=== PATIENT | female | born 1950 | race Caucasian/White ===

== ENCOUNTER 2017-10-31 15:38 | Inpatient (IN) ==
--- NOTE | 2017-10-31 15:58 | Emergency Department Note ---
Disposition Clinical Impression: Suicidal ideation Depression Qualifiers: Depression Type: unspecified Qualified Code(s): F32.9 - Major depressive disorder, single episode, unspecified Disposition: Admitted As Inpatient Condition: Good Referrals: González Sheriff DO [Primary Care Provider] - Forms: ED Satisfaction Letter Time of Disposition: 21:27 Psych HPI - General Chief Complaint: ED Psychiatric Symptoms Stated Complaint: SI,Depression, psychotic break Time Seen by Provider: 10/31/17 15:48 Source: patient Mode of arrival: ambulatory Limitations: no limitations Nursing Notes Reviewed: Yes Vital Signs Reviewed: Yes - History of Present Illness HPI Narrative: Patient presents emergency room from her primary care provider's office. Patient seen her today and they are concerned because she was describing suicidal ideation along with the plan. She is having a psychotic break according to them. Denies any other symptoms including chest pain shortness of breath headache vision changes nausea vomiting or diarrhea. Denies any fevers or chills. Patient simply here at the request. Pt complaint: suicidal ideation, feels depressed Onset (ago): day(s) Duration: constant History of similar episodes: Yes Improves with: none Worsens with: other Context: significant life stressor Alleged intoxication: No Associated Psychiatric Symptoms: depression, suicidal ideation Associated symptoms: Reports: denies other symptoms Traumatic symptoms: denies traumatic injury Treatments prior to arrival: none Self harm or harm to others: admits thoughts of self harm, has plan - Related Data Home Medications Medication Instructions Recorded Confirmed Ergocalciferol (VITAMIN D2) 50,000 unit PO QWEEK 10/31/17 10/31/17 [Drisdol (50,000 Unit)] Gabapentin [Neurontin] 400 mg PO TID 10/31/17 10/31/17 Levothyroxine Sodium [Synthroid] 137 mcg PO DAILY 10/31/17 10/31/17 Metoprolol [Lopressor] 25 mg PO BID 10/31/17 10/31/17 OLANZapine [Zyprexa] 5 mg PO DAILY 10/31/17 10/31/17 Omeprazole [PriLOSEC] 40 mg PO DAILY 10/31/17 10/31/17 Quetiapine Fumarate [SEROquel] 100 mg PO DAILY 10/31/17 10/31/17 Ropinirole HCl [Requip] 4 mg PO DAILY 10/31/17 10/31/17 Trazodone HCl 100 mg PO HS 10/31/17 10/31/17 clonazePAM [Klonopin] 0.5 mg PO DAILY 10/31/17 10/31/17 hydrOXYzine HCl [Hydroxyzine HCl] 50 mg PO DAILY PRN 10/31/17 10/31/17 lamoTRIgine [Lamictal] 150 mg PO DAILY 10/31/17 10/31/17 Allergies Allergy/AdvReac Type Severity Reaction Status Date / Time codeine Allergy Rash Verified 10/31/17 16:03 All systems ED: reviewed and negative except as stated. Review of Systems: As Per HPI Constitutional: Denies: fever, chills, weakness Cardiovascular: Denies: chest pain, palpitations, dyspnea on exertion Respiratory: Denies: cough Gastrointestinal: Denies: nausea, vomiting, diarrhea Genitourinary: Denies: dysuria, frequency Musculoskeletal: Reports: back pain. Denies: neck pain Integumentary: Denies: rash Neurological: Denies: headache Psychiatric: Reports: depression, suicidal thoughts Past Medical History - Past Medical History Attestation: Yes The following information was validated with the patient. Source: patient Medical history: Reports: arthritis, cancer, COPD, fibromyalgia, hepatitis, other Surgical history: Reports: cholecystectomy, hysterectomy Psychiatric history: Reports: bipolar, prior suicide attempt, previous psychiatric hospitalization - Social History Smoking Status: Current every day smoker Smokeless Tobacco Status: No Alcohol use: Reports: occasionally Drug use: Reports: opiates, marijuana Physical Exam - General Limitations: no limitations - Head Head exam: atraumatic, normocephalic, normal inspection - Eye Eye exam: Present: PERRL, EOMI - Neck Neck exam: Present: normal inspection, full ROM, trachea midline - Respiratory Respiratory exam: Present: normal lung sounds bilaterally - Cardiovascular Cardiovascular exam: Present: regular rate, normal rhythm, normal heart sounds - Abdominal Exam Abdominal exam: Present: soft - Extremities Exam Extremities exam: Present: normal inspection, full ROM - Neurological Exam Neurological exam: Present: alert, oriented X3, CN II-XII intact, normal gait - Skin Skin exam: Present: warm, dry, intact, normal color Course Course Narrative: Patient seen and examined the time of arrival. See history of present illness. He presents emergency room with complaint of suicidal ideation secondary to psychotic break and depression. Patient long-standing history of these issues. She see her primary care provider's office to the liver concern recommend she come to the emergency room for evaluation. Patient currently has planned to some of her son's guns to shoot herself. The son does become locked up she does actively want to kill herself this time. Denying any other medical issues at this point no new medications and denies any ingestion or other confounding medical issues at this time. Physical exam is unremarkable. Medical clearance to be completed at this time. Abdomen the treatment course this patient has medical clearance medical stabilization in the emergency room. Psychiatric providers will determine the rest of the determined - Reevaluation(s) Reevaluation #1: Patient is medically clear at this time. Psychiatric team contacted. And only in the patient's care is secondary to lab stopping elevated resulted. Laboratory workup and medical clearance evaluation by completed for over 2 hours. Labs were not resulted. Psychiatric team will come evaluate at this time. Patient does have what looks like contaminated urine that can be treated with oral medications if admission process is recommended. Time: 20:19 Reevaluation #2: She will be accepted to our facility for psychiatric evaluation treatment. Time: 21:27 Vital Signs Temperature 98.1 F 10/31/17 15:52 Pulse Rate 76 10/31/17 15:52 Respiratory Rate 20 10/31/17 15:52 Blood Pressure 120/83 10/31/17 15:52 O2 Sat by Pulse Oximetry 100 10/31/17 15:52 Temperature 98.1 F 10/31/17 15:52 Pulse Rate 76 10/31/17 15:55 Respiratory Rate 20 10/31/17 15:55 Blood Pressure 120/83 10/31/17 15:55 O2 Sat by Pulse Oximetry 100 10/31/17 15:55 Oxygen Delivery Oxygen Delivery Room Air Psych - MDM Narrative Medical decision making narrative: Suicidal ideation, depression - Medical Records Medical records reviewed: Yes I reviewed the patient's medical records. - Lab Data Lab results reviewed: Yes I reviewed the patient's lab results. Result diagrams: 10/31/17 16:10 10/31/17 16:10 Lab Results 10/31/17 10/31/17 10/31/17 Range/Units 15:42 15:42 16:10 WBC 5.0 (4.3-11.1) K/mcL RBC 4.01 (3.82-4.97) M/mcL Hgb 11.9 (11.5-15.4) g/dL Hct 35.8 (35.3-44.9) % MCV 89.3 (83.0-100.0) fL MCH 29.7 (28.0-33.3) pg MCHC 33.2 (31.6-35.5) g/dL RDW 13.1 (11.5-14.5) % Plt Count 274 (140-400) K/mcL MPV 9.4 (9.4-12.4) fL Immature Gran % 0.2 (0-4) % Seg Neutrophils % 47.7 % Lymphocytes % 39.7 % Monocytes % 8.6 % Eosinophils % 2.8 % Basophils % 1.0 % Neutrophils # 2.4 (1.6-8.9) K/mcL Lymphocytes # 2.0 (0.6-4.6) K/mcL Monocytes # 0.4 (0.0-1.3) K/mcL Eosinophils # 0.1 (0.0-0.6) K/mcL Basophils # 0.1 (0.0-0.2) K/mcL Sodium (136-145) mEq/L Potassium (3.5-4.5) mEq/L Chloride (98-109) mEq/L Carbon Dioxide (19-29) mEq/L BUN (7-20) mg/dL Creatinine (0.57-1.11) mg/dL Est GFR ( Amer) (> 60) Est GFR (Non-Af Amer) (> 60) BUN/Creatinine Ratio (6-26) Glucose (70-99) mg/dL Calculated Osmolality (280-300) Calcium (8.6-10.8) mg/dL Urine Color Yellow (Yellow) Urine Clarity Cloudy A (Clear) Urine pH 7.0 (5.0-8.0) pH Units Ur Specific [place] 1.017 (1.010-1.025) Urine Protein Negative (Neg-Trace) mg/dL Urine Glucose (UA) Normal (Normal) mg/dL Urine Ketones Negative (Negative) mg/dL Urine Blood Negative (Negative) Urine Nitrite Negative (Negative) Urine Bilirubin Negative (Negative) Urine Urobilinogen Normal (Normal) mg/dL Ur Leukocyte Esterase Large H (Negative) Urine Microscopic RBC 0-3 (0-3) per hpf Urine Microscopic WBC 15-30 H (0-3) per hpf Ur Squamous Epith Cells Moderate H (None-Few) per lpf Ur Renal Epithelial Cell Many H (None-Few) per hpf Urine Bacteria Few (None-Few) per hpf Salicylates (15-30) mg/dL Urine Opiates Screen Negative (Csykex=842) ng/mL Acetaminophen (10-30) mcg/mL Ur Barbiturates Screen Negative (Zfhunp=642) ng/mL Ur Phencyclidine Scrn Negative (Cutoff=25) ng/mL Ur Amphetamines Screen Negative (Yimndg=0041) ng/mL U Benzodiazepines Scrn Negative (Idvgav=716) ng/mL Urine Cocaine Screen Negative (Cutoff= 300) ng/mL U Marijuana (THC) Screen Negative (Cutoff = 50) ng/mL Ethyl Alcohol (0-10) mg/dL 10/31/17 Range/Units 16:10 WBC (4.3-11.1) K/mcL RBC (3.82-4.97) M/mcL Hgb (11.5-15.4) g/dL Hct (35.3-44.9) % MCV (83.0-100.0) fL MCH (28.0-33.3) pg MCHC (31.6-35.5) g/dL RDW (11.5-14.5) % Plt Count (140-400) K/mcL MPV (9.4-12.4) fL Immature Gran % (0-4) % Seg Neutrophils % % Lymphocytes % % Monocytes % % Eosinophils % % Basophils % % Neutrophils # (1.6-8.9) K/mcL Lymphocytes # (0.6-4.6) K/mcL Monocytes # (0.0-1.3) K/mcL Eosinophils # (0.0-0.6) K/mcL Basophils # (0.0-0.2) K/mcL Sodium 139 (136-145) mEq/L Potassium 3.9 (3.5-4.5) mEq/L Chloride 106 (98-109) mEq/L Carbon Dioxide 25 (19-29) mEq/L BUN 14 (7-20) mg/dL Creatinine 0.90 (0.57-1.11) mg/dL Est GFR ( Amer) > 60 (> 60) Est GFR (Non-Af Amer) > 60 (> 60) BUN/Creatinine Ratio 16 (6-26) Glucose 94 (70-99) mg/dL Calculated Osmolality 288 (280-300) Calcium 9.5 (8.6-10.8) mg/dL Urine Color (Yellow) Urine Clarity (Clear) Urine pH (5.0-8.0) pH Units Ur Specific [place] (1.010-1.025) Urine Protein (Neg-Trace) mg/dL Urine Glucose (UA) (Normal) mg/dL Urine Ketones (Negative) mg/dL Urine Blood (Negative) Urine Nitrite (Negative) Urine Bilirubin (Negative) Urine Urobilinogen (Normal) mg/dL Ur Leukocyte Esterase (Negative) Urine Microscopic RBC (0-3) per hpf Urine Microscopic WBC (0-3) per hpf Ur Squamous Epith Cells (None-Few) per lpf Ur Renal Epithelial Cell (None-Few) per hpf Urine Bacteria (None-Few) per hpf Salicylates < 5.0 L (15-30) mg/dL Urine Opiates Screen (Bjylhe=496) ng/mL Acetaminophen < 1.0 L (10-30) mcg/mL Ur Barbiturates Screen (Xbglmp=948) ng/mL Ur Phencyclidine Scrn (Cutoff=25) ng/mL Ur Amphetamines Screen (Sepugn=9628) ng/mL U Benzodiazepines Scrn (Qbjjbe=295) ng/mL Urine Cocaine Screen (Cutoff= 300) ng/mL U Marijuana (THC) Screen (Cutoff = 50) ng/mL Ethyl Alcohol < 10 (0-10) mg/dL - EKG Data EKG attestation: Yes I reviewed and interpreted this EKG. Psychiatric Medical Clearance - Medical Clearance Checklist Does the patient have a NEW psychiatric condition?: No Any abnormalities indicating possible medical illness?: No Any history of medical issues?: No Medical History: Suicidal ideation (Acute) Drug overdose, intentional (Acute) Alcohol intoxication (Resolved) Hyperthyroidism (Acute) MDD (major depressive disorder), recurrent severe, without psychosis (Acute) Anxiety disorder (Acute) Drug-seeking behavior (Acute) Acute psychosis (Acute) Acute renal insufficiency (Acute) Acute kidney injury (Acute) Leukocytosis (Acute) Elevated white blood cell count (Acute) Bipolar disorder, current episode manic severe with psychotic features (Acute) Opiate dependence (Acute) Cannabis use disorder, mild, in early remission (Acute) Depression (Acute) Anxiety (Inactive) Bronchitis (Inactive) Bronchitis (Inactive) Chronic back pain (Inactive) Chronic back pain (Inactive) No Social History Section defined Any abnormal vital signs prior to transfer?: No Current Vitals: Last Vital Signs Temp 98.1 F 10/31/17 15:52 Pulse 76 10/31/17 15:55 Resp 20 10/31/17 15:55 BP 120/83 10/31/17 15:55 Pulse Ox 100 10/31/17 15:55 Is the patient intoxicated or cognitively impaired?: No Psychiatric Lab Panel: Drug Levels and Toxicity 10/31/17 10/31/17 15:42 16:10 Urine Opiates Screen Negative Acetaminophen < 1.0 L Ur Barbiturates Screen Negative Ur Phencyclidine Scrn Negative Ur Amphetamines Screen Negative U Benzodiazepines Scrn Negative Urine Cocaine Screen Negative U Marijuana (THC) Screen Negative Ethyl Alcohol < 10 Any abnormalities on the physical exam?: No Any abnormal labs?: No Abnormal Labs: Abnormal lab results Urine Clarity Cloudy (Clear) A 10/31/17 15:42 Ur Leukocyte Esterase Large (Negative) H 10/31/17 15:42 Urine Microscopic WBC 15-30 per hpf (0-3) H 10/31/17 15:42 Ur Squamous Epith Cells Moderate per lpf (None-Few) H 10/31/17 15:42 Ur Renal Epithelial Cell Many per hpf (None-Few) H 10/31/17 15:42 Salicylates < 5.0 mg/dL (15-30) L 10/31/17 16:10 Acetaminophen < 1.0 mcg/mL (10-30) L 10/31/17 16:10 Does the patient require durable medical equiptment?: No Is the patient ambulatory?: Yes Is the patient a fall risk?: No Has the patient been medically cleared?: Yes Any acute medical condition require Tx prior to transfer?: No Statement of Medical Clearance: I have evaluated the patient, reviewed diagnostic information, and certify that the patient's medical condition is sufficiently stable that transfer to the psychiatric unit does not pose a significant risk of deterioration.
[2017-10-31 16:09] LABS: Bilirubin,Urine Negative (Negative); Blood,Urine Negative (Negative); Clarity,Urine Cloudy (Clear); Color,Urine Yellow (Yellow); Glucose,Urine (UA) Normal (Normal); Ketones,Urine Negative (Negative); Leukocyte Esterase,Urine Large (Negative); Nitrite,Urine Negative (Negative); Protein,Urine Negative (Neg-Trace); Specific Gravity,Urine 1.017 (1.010-1.025); Urobilinogen,Urine Normal (Normal)
[2017-10-31 16:20] LABS: Amphetamine Screen,Urine Negative ng/mL (Cutoff=1000); Barbiturate Screen,Urine Negative ng/mL (Cutoff=200); Benzodiazepines Screen,Urine Negative ng/mL (Cutoff=200); Cannabinoid Screen,Urine Negative ng/mL (Cutoff = 50); Cocaine Screen,Urine Negative ng/mL (Cutoff= 300); Opiate Screen,Urine Negative ng/mL (Cutoff=300); Phencyclidine Screen,Urine Negative ng/mL (Cutoff=25)
[2017-10-31 16:26] LABS: Basophils # 0.1 K/mcL (0.0-0.2); Eosinophils # 0.1 K/mcL (0.0-0.6); Eosinophils % 2.8 %; Hematocrit 35.8 % (35.3-44.9); Hemoglobin 11.9 g/dL (11.5-15.4); Immature Granulocytes % 0.2 % (0-4); Lymphocytes % 39.7 %; Mean Corpuscular HGB Conc 33.2 g/dL (31.6-35.5); Mean Corpuscular Hemoglobin 29.7 pg (28.0-33.3); Mean Corpuscular Volume 89.3 fL (83.0-100.0); Mean Platelet Volume 9.4 fL (9.4-12.4); Monocytes # 0.4 K/mcL (0.0-1.3); Monocytes % 8.6 %; Neutrophils # 2.4 K/mcL (1.6-8.9); Platelet Count 274 K/mcL (140-400); Red Blood Count 4.01 M/mcL (3.82-4.97); Red Cell Distribution Width 13.1 % (11.5-14.5); Segmented Neutrophils % 47.7 %
[2017-10-31 16:30] LABS: Renal Epithelial Cells,Urine Many per hpf (None-Few); Squamous Epithelial Cell,Urine Moderate per lpf (None-Few)
[2017-10-31 16:31] LABS: Bacteria,Urine Few per hpf (None-Few); RBC,Urine 0-3 per hpf (0-3); WBC,Urine 15-30 per hpf (0-3)
[2017-10-31 17:12] LABS: Acetaminophen < 1.0 mcg/mL (10-30); Ethanol < 10 mg/dL (0-10); Salicylate < 5.0 mg/dL (15-30)
[2017-10-31] MEDS ORDERED: *HR* LORazepam 0.5 MG TABLET PO ONE (18:28)
[2017-10-31 19:46] LABS: BUN/Creatinine Ratio 16 (6-26); Blood Urea Nitrogen 14 mg/dL (7-20); Calcium 9.5 mg/dL (8.6-10.8); Carbon Dioxide 25 mEq/L (19-29); Chloride 106 mEq/L (98-109); Glucose 94 mg/dL (70-99); Osmolality,Calculated 288 (280-300); Potassium 3.9 mEq/L (3.5-4.5); Sodium 139 mEq/L (136-145); eGFR For African Americans > 60 (> 60); eGFR For Non-African Americans > 60 (> 60)
[2017-10-31] MEDS ORDERED: CefTRIAXone 1,000 MG VIAL IM ONE (20:30)
[2017-10-31] MEDS ORDERED: Lidocaine -MPF 1% 2 ML VIAL ONE (21:28)
[2017-10-31] MEDS ORDERED: *HR* LORazepam 2 MG/ML VIAL IM PRN (22:05)
[2017-10-31] MEDS ORDERED: *HR* LORazepam 1 MG TABLET PO PRN (22:05)
[2017-10-31] MEDS ORDERED: MOM Conc 10 ML UD.LIQ PO PRN (22:05)
[2017-10-31] MEDS ORDERED: Mag Hydrox/Al Hydrox/Simeth 30 ML UDC PO PRN (22:05)
[2017-10-31] MEDS ORDERED: Ibuprofen 400 MG TABLET PO PRN (22:05)
[2017-10-31] MEDS ORDERED: hydrOXYzine pamoate 25 MG CAPSULE PO PRN (22:05)
[2017-10-31] MEDS ORDERED: Ondansetron ODT 4 MG TAB.RAPDIS SL ONE (22:30)
[2017-11-01] MEDS ORDERED: traZODone 50 MG TABLET PO SCH (09:45)
[2017-11-01] MEDS: lamoTRIgine 100 MG TABLET PO SCH (10:08)
[2017-11-01] MEDS: Nicotine 21 MG PATCH.TD24 TD SCH (10:08)
[2017-11-01] MEDS: Gabapentin 400 MG CAPSULE PO SCH ×3 (10:08→20:43)
--- NOTE | 2017-11-01 10:08 | Psychiatry History & Physical ---
Date of Encounter: 11/01/17 Time of Encounter: 10:02 History of Present Illness Patient Stated Chief Complaint: Depression and hallucinations Medicare Admission Attestation: For traditional Medicare patients the provided hospital inpatient services are reasonable and necessary and in the case of services not specified as inpatient -only under 42 CFR 419.22 (n), that they are appropriately provided as inpatient services in accordance 42 CFR 412.3. For Critical Access Hospital the patient may reasonably be expected to be discharged or transferred to a hospital within 96 hours after admission to the Critical [facility]. Admitted From: Emergency Dept History of Present Illness: Ms. El is a 67 year old female admitted from the emergency department for evaluation treatment of depression and psychosis. Patient has long history of treatment for bipolar disorder and schizoaffective disorder and recently has been having more depression and hallucinations. Patient also was having difficulty finding outpatient mental health's clinic that accept her insurance . Patient last admission records was October 2016. Patient reported problem with sleep, depressed mood, feeling anxious and confused and experiencing auditory and visual hallucinations. She denied suicidal ideation. Her medication were verified with the pharmacy. Past Med Surg Social Fam HX - Past Medical History Medical history: arthritis, cancer, COPD, fibromyalgia, hepatitis, other - Past Psychiatric History Psychiatric history: Reports: bipolar, schizophrenia, previous psychiatric hospitalization Past psychiatric history details: Last hospitalization October 2016 - Past Surgical History Surgical History: cholecystectomy, hysterectomy - Social History Smoking Status: Current every day smoker Smokeless Tobacco Status: No Alcohol use: occasionally Drug use: opiates, marijuana Medications & Allergies Ergocalciferol (VITAMIN D2) [Drisdol (50,000 Unit)] 50,000 unit PO QWEEK [History] Gabapentin [Neurontin] 400 mg PO TID 10/31/17 [History] Levothyroxine Sodium [Synthroid] 137 mcg PO DAILY 10/31/17 [History] Metoprolol [Lopressor] 25 mg PO BID 10/31/17 [History] OLANZapine [Zyprexa] 5 mg PO HS 10/31/17 [History] Omeprazole [PriLOSEC] 40 mg PO DAILY 10/31/17 [History] Quetiapine Fumarate [SEROquel] 200 mg PO HS 10/31/17 [History] Ropinirole HCl [Requip] 4 mg PO DAILY 10/31/17 [History] Trazodone HCl 100 mg PO HS 10/31/17 [History] clonazePAM [Klonopin] 0.5 mg PO 0900,1500 10/31/17 [History] hydrOXYzine HCl [Hydroxyzine HCl] 50 mg PO Q6H PRN 10/31/17 [History] lamoTRIgine [Lamictal] 150 mg PO DAILY 10/31/17 [History] Quetiapine Fumarate [Seroquel] 50 mg PO 0900,1500 11/01/17 [History] 3 Allergy/AdvReac Type Severity Reaction Status Date / Time codeine Allergy Rash Verified 10/31/17 16:03 haloperidol Allergy Anxiety Verified 10/31/17 22:51 Review of Systems Psychiatric: Reports: depression, abnormal sleep pattern, auditory hallucinations, visual hallucinations, mood swings Mental Status Exam Patient orientation: Yes Person, Yes Time, Yes Place Level of alertness: Alert Patient appearance: Appropriate, Unkempt, Disheveled Behavior: calm, cooperative, restless Psychomotor activity: Increased Eye contact: Minimal Contact Mood description: Euthymic/stable, Anxious Affect description: congruent with mood, labile Speech pattern: Normal rate, Normal rhythm, Normal tone, Coherent Speech volume: Normal Thought process: Linear, Goal Oriented Thought content: No Suicidal ideation, No Homicidal ideation, No Overt delusions Perceptual disturbances: Yes Auditory hallucinations, Yes Visual hallucinations Attention span: Capable of Focused Attention Memory description: Grossly Intact Patient reliability: Reliable Historian Intelligence estimate: Average Judgment: Limited Insight: Partial Results - Vital Signs Vital signs: Temp Pulse Resp BP Pulse Ox 96.8 F L 77 18 106/70 100 10/31/17 22:46 10/31/17 22:46 10/31/17 23:23 10/31/17 23:23 10/31/17 15:55 - Labs Labs: Laboratory Last Values WBC 5.0 K/mcL (4.3-11.1) 10/31/17 16:10 RBC 4.01 M/mcL (3.82-4.97) 10/31/17 16:10 Hgb 11.9 g/dL (11.5-15.4) 10/31/17 16:10 Hct 35.8 % (35.3-44.9) 10/31/17 16:10 MCV 89.3 fL (83.0-100.0) 10/31/17 16:10 MCH 29.7 pg (28.0-33.3) 10/31/17 16:10 MCHC 33.2 g/dL (31.6-35.5) 10/31/17 16:10 RDW 13.1 % (11.5-14.5) 10/31/17 16:10 Plt Count 274 K/mcL (140-400) 10/31/17 16:10 MPV 9.4 fL (9.4-12.4) 10/31/17 16:10 Immature Gran % 0.2 % (0-4) 10/31/17 16:10 Seg Neutrophils % 47.7 % 10/31/17 16:10 Lymphocytes % 39.7 % 10/31/17 16:10 Monocytes % 8.6 % 10/31/17 16:10 Eosinophils % 2.8 % 10/31/17 16:10 Basophils % 1.0 % 10/31/17 16:10 Neutrophils # 2.4 K/mcL (1.6-8.9) 10/31/17 16:10 Lymphocytes # 2.0 K/mcL (0.6-4.6) 10/31/17 16:10 Monocytes # 0.4 K/mcL (0.0-1.3) 10/31/17 16:10 Eosinophils # 0.1 K/mcL (0.0-0.6) 10/31/17 16:10 Basophils # 0.1 K/mcL (0.0-0.2) 10/31/17 16:10 Sodium 139 mEq/L (136-145) 10/31/17 16:10 Potassium 3.9 mEq/L (3.5-4.5) 10/31/17 16:10 Chloride 106 mEq/L (98-109) 10/31/17 16:10 Carbon Dioxide 25 mEq/L (19-29) 10/31/17 16:10 BUN 14 mg/dL (7-20) 10/31/17 16:10 Creatinine 0.90 mg/dL (0.57-1.11) 10/31/17 16:10 Est GFR ( Amer) > 60 (> 60) 10/31/17 16:10 Est GFR (Non-Af Amer) > 60 (> 60) 10/31/17 16:10 BUN/Creatinine Ratio 16 (6-26) 10/31/17 16:10 Glucose 94 mg/dL (70-99) 10/31/17 16:10 Calculated Osmolality 288 (280-300) 10/31/17 16:10 Calcium 9.5 mg/dL (8.6-10.8) 10/31/17 16:10 Urine Color Yellow (Yellow) 10/31/17 15:42 Urine Clarity Cloudy (Clear) A 10/31/17 15:42 Urine pH 7.0 pH Units (5.0-8.0) 10/31/17 15:42 Ur Specific [place] 1.017 (1.010-1.025) 10/31/17 15:42 Urine Protein Negative mg/dL (Neg-Trace) 10/31/17 15:42 Urine Glucose (UA) Normal mg/dL (Normal) 10/31/17 15:42 Urine Ketones Negative mg/dL (Negative) 10/31/17 15:42 Urine Blood Negative (Negative) 10/31/17 15:42 Urine Nitrite Negative (Negative) 10/31/17 15:42 Urine Bilirubin Negative (Negative) 10/31/17 15:42 Urine Urobilinogen Normal mg/dL (Normal) 10/31/17 15:42 Ur Leukocyte Esterase Large (Negative) H 10/31/17 15:42 Urine Microscopic RBC 0-3 per hpf (0-3) 10/31/17 15:42 Urine Microscopic WBC 15-30 per hpf (0-3) H 10/31/17 15:42 Ur Squamous Epith Cells Moderate per lpf (None-Few) H 10/31/17 15:42 Ur Renal Epithelial Cell Many per hpf (None-Few) H 10/31/17 15:42 Urine Bacteria Few per hpf (None-Few) 10/31/17 15:42 Salicylates < 5.0 mg/dL (15-30) L 10/31/17 16:10 Urine Opiates Screen Negative ng/mL (Wlnldl=097) 10/31/17 15:42 Acetaminophen < 1.0 mcg/mL (10-30) L 10/31/17 16:10 Ur Barbiturates Screen Negative ng/mL (Qsppvq=187) 10/31/17 15:42 Ur Phencyclidine Scrn Negative ng/mL (Cutoff=25) 10/31/17 15:42 Ur Amphetamines Screen Negative ng/mL (Gdayho=1296) 10/31/17 15:42 U Benzodiazepines Scrn Negative ng/mL (Ewppyr=760) 10/31/17 15:42 Urine Cocaine Screen Negative ng/mL (Cutoff= 300) 10/31/17 15:42 U Marijuana (THC) Screen Negative ng/mL (Cutoff = 50) 10/31/17 15:42 Ethyl Alcohol < 10 mg/dL (0-10) 10/31/17 16:10 Assessment and Plan (1) Bipolar disorder current episode depressed Current visit: Yes Status: Acute Plan: Admit inpatient for safety and stabilization, Close observation, Suicide Precautions per unit protocol, Encourage participation in unit milieu, Group Therapy, Monitor sleep, Monitor appetite Additional Plan: Medications reviewed and will be started Risks, benefits, side effects, alternatives discussed w/pt: Yes Patient agreeable to treatment: Yes Qualifiers: Current episode severity: severe Psychotic features: with psychotic features Qualified Code(s): F31.5 - Bipolar disorder, current episode depressed, severe, with psychotic features
[2017-11-01] MEDS ORDERED: clonazePAM 0.5 MG TABLET PO SCH (15:00)
[2017-11-01] MEDS: hydrOXYzine pamoate 25 MG CAPSULE PO PRN (15:44)
[2017-11-01] MEDS: clonazePAM 0.5 MG TABLET PO PRN (20:43)
[2017-11-01] MEDS: OLANZapine 5 MG TAB.RAPDIS PO SCH (20:43)
[2017-11-01] MEDS: traZODone 50 MG TABLET PO PRN (20:44)
[2017-11-02] MEDS: Nicotine 21 MG PATCH.TD24 TD SCH (08:53)
[2017-11-02] MEDS: lamoTRIgine 100 MG TABLET PO SCH (08:53)
[2017-11-02] MEDS: Gabapentin 400 MG CAPSULE PO SCH ×3 (08:54→19:58)
[2017-11-02] MEDS: clonazePAM 0.5 MG TABLET PO PRN ×2 (12:31→19:58)
[2017-11-02] MEDS ORDERED: Ondansetron Oral Soln 2 MG/2.5 ML ORAL.SYG PO ONE (13:57)
[2017-11-02] MEDS: hydrOXYzine pamoate 25 MG CAPSULE PO PRN ×2 (14:00→19:58)
--- NOTE | 2017-11-02 14:05 | Psychiatry Progress Note ---
Date of Encounter: 11/02/17 Time of Encounter: 13:45 Subjective Interval history: Patient seen in follow-up. Nursing staff reported yesterday that her vital signs on low blood pressure, some medication were put on hold. Today she is reported to have stable vital signs she is asking for medication to be restarted including Seroquel and asking for help with anxiety. She denies any problem with sleep, she denies any auditory or visual hallucinations. She is cooperative and compliant with medication. Review of Systems Psychiatric: Reports: depression, abnormal sleep pattern, auditory hallucinations, visual hallucinations, mood swings Objective: Exam Patient orientation: Yes Person, Yes Time, Yes Place Level of alertness: Alert Patient appearance: Appropriate, Well Groomed Behavior: calm, cooperative, anxious Psychomotor activity: Increased Eye contact: Fleeting Contact Mood description: Euthymic/stable, Anxious Affect description: congruent with mood, labile Speech pattern: Normal rate, Normal rhythm, Normal tone, Excessive Speech volume: Normal Thought process: Linear, Goal Oriented Thought content: No Suicidal ideation, No Homicidal ideation, No Overt delusions Perceptual disturbances: No Auditory hallucinations, No Visual hallucinations Judgment: Fair Insight: Partial Results - Vital Signs Vital Signs: Temp Pulse Resp BP Pulse Ox 98.6 F 85 16 113/77 100 11/02/17 09:00 11/02/17 09:00 11/02/17 09:00 11/02/17 09:00 10/31/17 15:55 Assessment and Plan (1) Bipolar disorder current episode depressed Current visit: Yes Status: Acute Plan: Continue hospitalization, Close observation, Suicide Precautions per unit protocol, Encourage participation in unit milieu, Group Therapy, Monitor sleep, Monitor appetite Risks, benefits, side effects, alternatives discussed w/pt: Yes Patient agreeable to treatment: Yes Qualifiers: Current episode severity: severe Psychotic features: with psychotic features Qualified Code(s): F31.5 - Bipolar disorder, current episode depressed, severe, with psychotic features Consult Discharge Plan - Plan Referrals: González Sheriff DO [Primary Care Provider] -
[2017-11-02] MEDS ORDERED: Ondansetron ODT 4 MG TAB.RAPDIS SL ONE (14:17)
[2017-11-02] MEDS: traZODone 50 MG TABLET PO PRN (19:58)
[2017-11-02] MEDS: OLANZapine 5 MG TAB.RAPDIS PO SCH (19:58)
[2017-11-03] MEDS: hydrOXYzine pamoate 25 MG CAPSULE PO PRN (03:02)
[2017-11-03] MEDS: Nicotine 21 MG PATCH.TD24 TD SCH (08:35)
[2017-11-03] MEDS: Gabapentin 400 MG CAPSULE PO SCH ×3 (08:36→20:28)
[2017-11-03] MEDS: lamoTRIgine 100 MG TABLET PO SCH (08:37)
--- NOTE | 2017-11-03 10:55 | Psychiatry Progress Note ---
Date of Encounter: 11/03/17 Time of Encounter: 10:30 Subjective Interval history: Patient seen today for follow up , case d/w treatment team , she is admitted for depression and anxiety , states i had several family members , including her son who passed in 06/16. she is still feeling depress, anxious at times rocking , states i want to throw fit as they messed up my zypREXA. STATES UNABLE TO SEE PSYCHIATRIST SECONDARY TO her insurance and her family physician was prescribing her medication for her psych. she is having circumstantial thought process and is stating klonopin 1 mg tid helped her most , states she is angry and upset , all these people screw you around. she is not hearing voices but is internallt preoccupied. she denies any side effects. agrees very depress and anxious and lousy sleep. Review of Systems Psychiatric: Reports: depression, anxiety, abnormal sleep pattern, auditory hallucinations, visual hallucinations, mood swings Objective: Exam Patient orientation: Yes Person, Yes Time, Yes Place Level of alertness: Alert Patient appearance: Unkempt Behavior: anxious, agitated Psychomotor activity: Agitated Eye contact: Minimal Contact Mood description: Angry, Depressed, Anxious Affect description: congruent with mood Speech pattern: Excessive Speech volume: Normal Thought process: Circumstantial Thought content: Yes Preoccupation, Yes Paranoid delusion Judgment: Limited Insight: Minimal Results - Vital Signs Vital Signs: Temp Pulse Resp BP Pulse Ox 97.5 F L 88 14 98/71 100 11/03/17 09:00 11/03/17 09:00 11/03/17 09:00 11/03/17 09:00 10/31/17 15:55 Assessment and Plan (1) Acute psychosis Current visit: No Status: Acute Plan: Continue hospitalization, Close observation, Suicide Precautions per unit protocol, Encourage participation in unit milieu, Group Therapy, Monitor sleep, Family/Supportive other meeting Risks, benefits, side effects, alternatives discussed w/pt: Yes Patient agreeable to treatment: Yes (2) Bipolar disorder current episode depressed Current visit: Yes Status: Acute Plan: Continue hospitalization, Close observation, Suicide Precautions per unit protocol, Encourage participation in unit milieu, Group Therapy, Monitor sleep, Monitor appetite, Family/Supportive other meeting Risks, benefits, side effects, alternatives discussed w/pt: Yes Patient agreeable to treatment: Yes Qualifiers: Current episode severity: severe Psychotic features: with psychotic features Qualified Code(s): F31.5 - Bipolar disorder, current episode depressed, severe, with psychotic features Consult Discharge Plan - Plan Referrals: González Sheriff DO [Primary Care Provider] -
[2017-11-03] MEDS: clonazePAM 0.5 MG TABLET PO PRN (11:12)
[2017-11-03] MEDS: OLANZapine 5 MG TAB.RAPDIS PO PRN (15:35)
[2017-11-03] MEDS: OLANZapine 5 MG TAB.RAPDIS PO SCH (20:28)
[2017-11-03] MEDS: Mirtazapine 15 MG TABLET PO SCH (20:28)
[2017-11-04] MEDS: clonazePAM 0.5 MG TABLET PO PRN ×3 (02:23→20:13)
[2017-11-04] MEDS: OLANZapine 5 MG TAB.RAPDIS PO PRN ×2 (08:33→18:17)
[2017-11-04] MEDS: Gabapentin 400 MG CAPSULE PO SCH ×3 (08:34→20:09)
[2017-11-04] MEDS: lamoTRIgine 100 MG TABLET PO SCH (08:34)
[2017-11-04] MEDS: Nicotine 21 MG PATCH.TD24 TD SCH (08:36)
--- NOTE | 2017-11-04 10:25 | Psychiatry Progress Note ---
Date of Encounter: 11/04/17 Time of Encounter: 10:10 Subjective Interval history: Patient seen today , case d/w staff and meds and chart reviewed. Patient is on 2 anti psychotics both low doses , her home medications also have seroquel and olanzapine. she was educated today if we can change to only seroquel , she refused to do any changes , states i feel much better this way, the medicine you gave for sleep and anxiety is working , i slept well , i am doing better now and i am not suicidal. she looks better, AIMS 0 . denies side effects. Review of Systems Psychiatric: Reports: depression, anxiety, abnormal sleep pattern, auditory hallucinations, visual hallucinations, mood swings Objective: Exam Patient orientation: Yes Person, Yes Time, Yes Place Level of alertness: Alert Patient appearance: Appropriate Behavior: calm, cooperative Psychomotor activity: Normal Eye contact: Maintains Eye Contact Mood description: Anxious Affect description: congruent with mood Speech pattern: Normal rate, Normal rhythm, Normal tone Speech volume: Normal Thought process: Intact Thought content: Yes Intact Judgment: Fair Insight: Full Results - Vital Signs Vital Signs: Temp Pulse Resp BP Pulse Ox 98.4 F 98 16 116/76 100 11/04/17 08:58 11/04/17 08:58 11/04/17 08:58 11/04/17 08:58 10/31/17 15:55 Assessment and Plan (1) Acute psychosis Current visit: No Status: Acute Risks, benefits, side effects, alternatives discussed w/pt: Yes Patient agreeable to treatment: Yes (2) Bipolar disorder current episode depressed Current visit: Yes Status: Acute Risks, benefits, side effects, alternatives discussed w/pt: Yes Patient agreeable to treatment: Yes Qualifiers: Current episode severity: severe Psychotic features: with psychotic features Qualified Code(s): F31.5 - Bipolar disorder, current episode depressed, severe, with psychotic features Consult Discharge Plan - Plan Referrals: [facility] [Outside] - 11/10/17 3:00 pm (The above appointment is with Kait Nunez for outpatient counseling services. You will also see Veronica Hollis for outpatient psychiatric assessment and medication management services on 11/21/2017 at 9:00 AM. Above appointments reflect first availability. You may contact the office regularly to check for cancellations that may allow you to be seen sooner.)
[2017-11-04] MEDS: Mirtazapine 15 MG TABLET PO SCH (20:09)
[2017-11-04] MEDS: OLANZapine 5 MG TAB.RAPDIS PO SCH (20:22)
--- NOTE | 2017-11-05 06:55 | Electrocardiograph Report ---
[address] [address] Test Date: 2017-10-31 Pat Name: Mireille El Department: 103 Room: 1A23 Gender: F Tableau Lead: [facility] : 1950 Requested By: Robbin Chu Order Number: [id number] Reading MD: Emily Plata Measurements Intervals [place] Rate: 69 P: 28 NM: 188 QRS: 7 QRSD: 82 T: 23 QT: 427 QTc: 447 Interpretive Statements SINUS RHYTHM Electronically Signed On 11-05-2017 6:53:45 EST by Emily Plata
[2017-11-05] MEDS: Nicotine 21 MG PATCH.TD24 TD SCH (07:59)
[2017-11-05] MEDS: clonazePAM 0.5 MG TABLET PO PRN (07:59)
[2017-11-05] MEDS: Gabapentin 400 MG CAPSULE PO SCH (08:00)
[2017-11-05] MEDS: lamoTRIgine 100 MG TABLET PO SCH (08:00)
--- NOTE | 2017-11-05 11:04 | Discharge Summary ---
Date of Encounter: 11/05/17 Time of Encounter: 10:45 Diagnosis - Discharge Diagnosis (1) Acute psychosis Status: Resolved Comments: patient on discharge not psychotic (2) Bipolar disorder current episode depressed Status: Acute Comments: Patient is at baseline , medications and structure enviornment helped and she has improved. Qualifiers: Current episode severity: severe Psychotic features: with psychotic features Qualified Code(s): F31.5 - Bipolar disorder, current episode depressed, severe, with psychotic features Medications - Discharge Medications Prescriptions: clonazePAM [Klonopin] 0.5 mg PO 0900,1500 #14 tablet lamoTRIgine [Lamictal] 150 mg PO DAILY #14 tablet Mirtazapine [Remeron] 7.5 mg PO HS #14 tablet Nicotine Patch [Nicoderm] 21 mg TD DAILY #10 patch.td24 OLANZapine [Zyprexa] 5 mg PO HS #14 tablet Quetiapine Fumarate [Seroquel] 200 mg PO HS #30 tablet Quetiapine Fumarate [Seroquel] 50 mg PO 0900,1500 #30 tablet Ergocalciferol (VITAMIN D2) [Drisdol (50,000 Unit)] 50,000 unit PO QWEEK [History] Gabapentin [Neurontin] 400 mg PO TID 10/31/17 [History] Levothyroxine Sodium [Synthroid] 137 mcg PO DAILY 10/31/17 [History] Metoprolol [Lopressor] 25 mg PO BID 10/31/17 [History] Omeprazole [PriLOSEC] 40 mg PO DAILY 10/31/17 [History] Ropinirole HCl [Requip] 4 mg PO DAILY 10/31/17 [History] Trazodone HCl 100 mg PO HS 10/31/17 [History] hydrOXYzine HCl [Hydroxyzine HCl] 50 mg PO Q6H PRN 10/31/17 [History] Mirtazapine [Remeron] 7.5 mg PO HS #14 tablet 11/05/17 [Rx] Nicotine Patch [Nicoderm] 21 mg TD DAILY #10 patch.td24 11/05/17 [Rx] OLANZapine [Zyprexa] 5 mg PO HS #14 tablet 11/05/17 [Rx] Quetiapine Fumarate [Seroquel] 50 mg PO 0900,1500 #30 tablet 11/05/17 [Rx] Quetiapine Fumarate [Seroquel] 200 mg PO HS #30 tablet 11/05/17 [Rx] clonazePAM [Klonopin] 0.5 mg PO 0900,1500 #14 tablet 11/05/17 [Rx] lamoTRIgine [Lamictal] 150 mg PO DAILY #14 tablet 11/05/17 [Rx] 3 Allergy/AdvReac Type Severity Reaction Status Date / Time codeine Allergy Rash Verified 10/31/17 16:03 haloperidol Allergy Anxiety Verified 10/31/17 22:51 Provider Date of admission: 10/31/17 21:56 Primary care physician: PCP NONE Assessment and Plan - Patient/Caregiver Discharge Instructions Activity: resume usual activities as tolerated Diet: regular diet - Follow up Plan Follow up with: [facility] [Outside] - 11/10/17 3:00 pm (The above appointment is with Kait Nunez for outpatient counseling services. You will also see Veronica Hollis for outpatient psychiatric assessment and medication management services on 11/21/2017 at 9:00 AM. Above appointments reflect first availability. You may contact the office regularly to check for cancellations that may allow you to be seen sooner.) Overall status at discharge: patient is back to baseline Disposition: Home, Self-Care Hospital Course Hospital course: Ms. El is a 67 year old female was admitted for depression and suicidal thoughts and paranoia. she has h/o bipolar and lives with her son. During her hospital stay she improved in her moods, depression , anxiety and somatic complaints, no psychosis, she is compliant with treatment plan. she denies side effects and AIMS 0 She has support from her son , lives with him. at present she is at baseline and not in imenent danger to self/others. Time spent discussing smoking cessation with patient: 3 to 10 minutes Does patient wish to continue nicotine replacement upon disc: Yes (NICOTINE PATCH prescription given.) - Time Spent with Patient Total time spent providing and/or coordinating discharge services: Greater than 30 minutes Quality - Multiple Antipsychotics Patient discharged on 2 or more antipsychotic medications: Yes (patient when admitted was on 2 antipsychotics and education given .) - Justification Documentation of: Recommended plan to taper to monotherapy (patient was educated to be on one antipsychotic she refused to as she has been tolerating them well and she will discuss with her out patient psychiatrist .) Procedures - Procedures Procedures: Medication Management, Crisis Stabilization, Supportive Therapy, Group Therapy, Psychoeducational Therapy Mental Status Exam - Mental Status Exam Patient orientation: Yes Person, Yes Time, Yes Place Level of alertness: Alert Patient appearance: Appropriate Behavior: calm, cooperative Psychomotor activity: Normal Eye contact: Maintains Eye Contact Mood description: Euthymic/stable Affect description: congruent with mood Speech pattern: Normal rate Speech Volume: Normal Thought process: Intact Thought Content: Yes Intact Judgment: Good Insight: Full
[2017-11-05 11:38] VITALS: BP 118/84
[2017-11-05] MEDS ORDERED: FLUARIX QUAD 2017-18 36MOS UP/PF 0.5 ML SYRINGE IM ONE (12:23)
== END 2017-11-05 12:40 | disposition home or self-care (01) | DRG 885 ==
LOC: EMEROO 15:38 → 1ANU 21:56
PROVIDERS: ADMIT Psychiatry & Neurology Psychiatry; ATTEND Psychiatry & Neurology Psychiatry

== ENCOUNTER 2018-11-27 14:33 | Inpatient (IN) ==
--- NOTE | 2018-11-27 15:13 | Emergency Department Note ---
Disposition Clinical Impression: Suicidal ideation Bipolar disorder Qualifiers: Active/Remission status: remission status unspecified Qualified Code(s): F31.9 - Bipolar disorder, unspecified Disposition: Admitted As Inpatient Condition: Fair Referrals: NONE,PCP [Primary Care Provider] - Forms: ED Satisfaction Letter Time of Disposition: 19:02 Psych HPI - General Chief Complaint: ED Psychiatric Symptoms Stated Complaint: SI Time Seen by Provider: 11/27/18 14:37 Source: EMS Mode of arrival: EMS Limitations: no limitations Nursing Notes Reviewed: Yes Vital Signs Reviewed: Yes - History of Present Illness HPI Narrative: Patient presents emergency room by EMS for suicidal ideation. Patient is fixated on how high she would have to be on a bridge to when she hit the water. Patient denies any trauma or injury at this time. She has not ingested any medication. Patient has a history of depression and bipolar. She has been compliant with her medications. Several life stressors noted over the last several months. Patient denies any complaints of any other symptoms issues at this time. 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 Duration: constant History of similar episodes: Yes Improves with: none Worsens with: none Alleged intoxication: No Associated Psychiatric Symptoms: depression, suicidal ideation Associated symptoms: Reports: denies other symptoms Traumatic symptoms: denies traumatic injury Treatments prior to arrival: none Self harm or harm to others: admits thoughts of self harm, has plan - Related Data Home Medications Medication Instructions Recorded Confirmed Ergocalciferol (VITAMIN D2) 50,000 unit PO TU 10/31/17 11/27/18 [Drisdol (50,000 Unit)] Gabapentin [Neurontin] 400 mg PO TID 10/31/17 11/27/18 Levothyroxine Sodium [Synthroid] 137 mcg PO DAILY 10/31/17 11/27/18 Omeprazole [PriLOSEC] 40 mg PO DAILY 10/31/17 11/27/18 OLANZapine [Zyprexa] 5 mg PO QID 11/27/18 11/27/18 Quetiapine Fumarate [SEROquel] 100 mg PO DAILY 11/27/18 11/27/18 Trazodone HCl 100 mg PO HS 11/27/18 11/27/18 clonazePAM [Klonopin] 0.5 mg PO TID 11/27/18 11/27/18 Previous Rx's Medication Instructions Recorded Mirtazapine [Remeron] 7.5 mg PO HS #14 tablet 11/05/17 Quetiapine Fumarate [Seroquel] 200 mg PO HS #30 tablet 11/05/17 lamoTRIgine [Lamictal] 150 mg PO DAILY #14 tablet 11/05/17 Allergies Allergy/AdvReac Type Severity Reaction Status Date / Time codeine Allergy See Verified 11/27/18 18:42 Comments haloperidol Allergy Anxiety Verified 11/27/18 18:42 All systems ED: reviewed and negative except as stated. Review of Systems: As Per HPI Constitutional: Denies: fever, chills Cardiovascular: Denies: chest pain, palpitations, dyspnea on exertion, orthopnea Respiratory: Denies: cough, dyspnea, wheezes, hemoptysis Gastrointestinal: Denies: abdominal pain, nausea, vomiting, diarrhea Genitourinary: Denies: urgency, dysuria, frequency Musculoskeletal: Denies: back pain, neck pain Neurological: Denies: headache, weakness Psychiatric: Reports: depression, suicidal thoughts. Denies: homicidal thoughts Past Medical History - Past Medical History Attestation: Yes The following information was validated with the patient. Source: patient Medical history: Reports: arthritis, cancer, COPD, fibromyalgia, hepatitis, oth er Surgical history: Reports: cholecystectomy, hysterectomy Psychiatric history: Reports: bipolar, schizophrenia, previous psychiatric hospitalization INSIDE STEWARD/STEWARDESS history: Reports: no INSIDE STEWARD/STEWARDESS history - Social History Smoking Status: Current every day smoker Smokeless Tobacco Status: No Alcohol use: Reports: occasionally Drug use: Reports: opiates, marijuana Physical Exam - General Limitations: no limitations General appearance: alert, in no apparent distress - Head Head exam: atraumatic, normocephalic, normal inspection - Eye Eye exam: Present: normal appearance, PERRL, EOMI - ENT ENT exam: normal exam, normal oropharynx, mucous membranes moist - Neck Neck exam: Present: normal inspection, full ROM, trachea midline. Absent: tenderness - Chest Chest inspection: Present: normal inspection, symmetric chest wall rise. Abs ent: tenderness - Respiratory Respiratory exam: Present: normal lung sounds bilaterally. Absent: respiratory distress, wheezes, accessory muscle use - Cardiovascular Cardiovascular exam: Present: regular rate, normal rhythm, normal heart sounds - Abdominal Exam Abdominal exam: Present: soft, Non-Tender, normal bowel sounds. Absent: tenderness, distention, guarding, rebound, rigidity, Lobato's sign, Rovsing's sign, tenderness at McBurney's Point - Extremities Exam Extremities exam: Present: normal inspection, full ROM, normal capillary refill. Absent: tenderness - Back Exam Back exam: Present: normal inspection, full ROM. Absent: tenderness, CVA tenderness (R), CVA tenderness (L) - Neurological Exam Neurological exam: Present: alert, oriented X3, CN II-XII intact, normal gait - Skin Skin exam: Present: warm, dry, intact, normal color Course Course Narrative: Patient seen and examined the time of arrival. See history of present illness. 68-year-old female presents by EMS for evaluation of suicidal ideation secondary to bipolar depression. Patient is been compliant with her medications. She has a long-standing history of depression. She also has significant life stressors at this time either. Patient denies any chest pain, shortness breath, headache, vision changes, nausea, vomiting, diarrhea. No fevers no chills. No recent falls trauma or injury. Patient is alert she is oriented and speaking full sentences. Her described plan is to jump off a bridge. In fact, she asked how high she would have be from the ground to kill herself on impact. Patient otherwise appears to have appropriate medical decision-making capacity and appropriate insight into her medical illness. Screening evaluation will be established at this time. Lungs are clear heart is regular abdomen is soft. No neurologic deficits or signs of intoxication noted. She will be medically cleared here in the emergency room and in psychiatric team will evaluate. Patient is accommodating for treatment course at this point so pink slip will not be signed yet at this time. We will continue to monitor here until treatment course has been established. Patient otherwise in no distress. Again, mild involvement in the treatment of this patient is for medical clearance and the decisions made for psychiatric related illness and treatment course will be completed by psychiatric team. - Reevaluation(s) Reevaluation #1: 1a contacted Time: 16:30 Reevaluation #2: Patient has been accepted to 180 for psychiatric evaluation. No other recommendations at this time. Patient is having some issues with relaxing in the room so a single IM dose of Geodon was given prior to the admission process being completed. Elsa slip will be filled out here in the emergency room secondary the patient's suicidal ideation. Patient is otherwise currently stable to time of admission Time: 19:02 Vital Signs Temperature 98.3 F 11/27/18 14:37 Pulse Rate 98 11/27/18 14:37 Respiratory Rate 16 11/27/18 14:37 Blood Pressure 148/88 11/27/18 14:37 O2 Sat by Pulse Oximetry 99 11/27/18 14:37 Temperature 98.3 F 11/27/18 14:37 Pulse Rate 98 11/27/18 14:37 Respiratory Rate 16 11/27/18 14:37 Blood Pressure 148/88 11/27/18 14:37 O2 Sat by Pulse Oximetry 99 11/27/18 14:37 Oxygen Delivery Oxygen Delivery Room Air Psych - MDM Narrative Medical decision making narrative: Suicidal ideation, bipolar - Medical Records Medical records reviewed: Yes I reviewed the patient's medical records. - Lab Data Lab results reviewed: Yes I reviewed the patient's lab results. Result diagrams: 11/27/18 15:23 11/27/18 15:23 Lab Results 11/27/18 11/27/18 11/27/18 Range/Units 15:10 15:10 15:23 WBC 6.1 (4.3-11.1) K/mcL RBC 3.84 (3.82-4.97) M/mcL Hgb 11.7 (11.5-15.4) g/dL Hct 34.3 L (35.3-44.9) % MCV 89.3 (83.0-100.0) fL MCH 30.5 (28.0-33.3) pg MCHC 34.1 (31.6-35.5) g/dL RDW 13.6 (11.5-14.5) % Plt Count 273 (140-400) K/mcL MPV 9.0 L (9.4-12.4) fL Immature Gran % 0.2 (0-4) % Seg Neutrophils % 55.8 % Lymphocytes % 30.3 % Monocytes % 8.9 % Eosinophils % 4.0 % Basophils % 0.8 % Neutrophils # 3.4 (1.6-8.9) K/mcL Lymphocytes # 1.8 (0.6-4.6) K/mcL Monocytes # 0.5 (0.0-1.3) K/mcL Eosinophils # 0.2 (0.0-0.6) K/mcL Basophils # 0.1 (0.0-0.2) K/mcL Sodium (136-145) mEq/L Potassium (3.5-5.1) mEq/L Chloride (98-107) mEq/L Carbon Dioxide (23-29) mEq/L BUN (8-23) mg/dL Creatinine (0.60-1.20) mg/dL Est GFR ( Amer) (> 60) Est GFR (Non-Af Amer) (> 60) BUN/Creatinine Ratio (6-26) Glucose (70-105) mg/dL Calculated Osmolality (280-300) Calcium (8.6-10.3) mg/dL Urine Color Yellow (Yellow) Urine Clarity Clear (Clear) Urine pH 6.5 (5.0-8.0) pH Units Ur Specific Jackson 1.006 L (1.010-1.025) Urine Protein Negative (Neg-Trace) mg/dL Urine Glucose (UA) Normal (Normal) mg/dL Urine Ketones Negative (Negative) mg/dL Urine Blood Negative (Negative) Urine Nitrite Negative (Negative) Urine Bilirubin Negative (Negative) Urine Urobilinogen Normal (Normal) mg/dL Ur Leukocyte Esterase Negative (Negative) Salicylates (15.0-30.0) mg/dL Urine Opiates Screen Negative (Cgogiw=973) ng/mL Acetaminophen (10-20) mcg/mL Ur Barbiturates Screen Negative (Fpxbeb=895) ng/mL Ur Phencyclidine Scrn Negative (Cutoff=25) ng/mL Ur Amphetamines Screen Negative (Unvxgv=6534) ng/mL U Benzodiazepines Scrn Negative (Blhesg=315) ng/mL Urine Cocaine Screen Negative (Cutoff= 300) ng/mL U Marijuana (THC) Screen Positive H (Cutoff = 50) ng/mL Ur Drug Screen Interp See Below Ethyl Alcohol (Less than 10) mg/dL 11/27/18 Range/Units 15:23 WBC (4.3-11.1) K/mcL RBC (3.82-4.97) M/mcL Hgb (11.5-15.4) g/dL Hct (35.3-44.9) % MCV (83.0-100.0) fL MCH (28.0-33.3) pg MCHC (31.6-35.5) g/dL RDW (11.5-14.5) % Plt Count (140-400) K/mcL MPV (9.4-12.4) fL Immature Gran % (0-4) % Seg Neutrophils % % Lymphocytes % % Monocytes % % Eosinophils % % Basophils % % Neutrophils # (1.6-8.9) K/mcL Lymphocytes # (0.6-4.6) K/mcL Monocytes # (0.0-1.3) K/mcL Eosinophils # (0.0-0.6) K/mcL Basophils # (0.0-0.2) K/mcL Sodium 133 L (136-145) mEq/L Potassium 4.0 (3.5-5.1) mEq/L Chloride 104 (98-107) mEq/L Carbon Dioxide 28 (23-29) mEq/L BUN 8 (8-23) mg/dL Creatinine 0.82 (0.60-1.20) mg/dL Est GFR ( Amer) > 60 (> 60) Est GFR (Non-Af Amer) > 60 (> 60) BUN/Creatinine Ratio 10 (6-26) Glucose 114 H (70-105) mg/dL Calculated Osmolality 275 L (280-300) Calcium 8.7 (8.6-10.3) mg/dL Urine Color (Yellow) Urine Clarity (Clear) Urine pH (5.0-8.0) pH Units Ur Specific Jackson (1.010-1.025) Urine Protein (Neg-Trace) mg/dL Urine Glucose (UA) (Normal) mg/dL Urine Ketones (Negative) mg/dL Urine Blood (Negative) Urine Nitrite (Negative) Urine Bilirubin (Negative) Urine Urobilinogen (Normal) mg/dL Ur Leukocyte Esterase (Negative) Salicylates < 2.5 L (15.0-30.0) mg/dL Urine Opiates Screen (Oqqxtl=631) ng/mL Acetaminophen < 10 L (10-20) mcg/mL Ur Barbiturates Screen (Bygrgm=922) ng/mL Ur Phencyclidine Scrn (Cutoff=25) ng/mL Ur Amphetamines Screen (Utkzhs=7537) ng/mL U Benzodiazepines Scrn (Thxtzo=949) ng/mL Urine Cocaine Screen (Cutoff= 300) ng/mL U Marijuana (THC) Screen (Cutoff = 50) ng/mL Ur Drug Screen Interp Ethyl Alcohol < 10 (Less than 10) mg/dL Psychiatric Medical Clearance - Medical Clearance Checklist Does the patient have a NEW psychiatric condition?: No Any abnormalities indicating possible medical illness?: No Any history of medical issues?: No Medical History: No Social History Section defined Any abnormal vital signs prior to transfer?: No Current Vitals: Last Vital Signs Temp 98.3 F 11/27/18 14:37 Pulse 98 11/27/18 14:37 Resp 16 11/27/18 14:37 BP 148/88 11/27/18 14:37 Pulse Ox 99 11/27/18 14:37 Is the patient intoxicated or cognitively impaired?: No Psychiatric Lab Panel: Drug Levels and Toxicity 11/27/18 11/27/18 15:10 15:23 Urine Opiates Screen Negative Acetaminophen < 10 L Ur Barbiturates Screen Negative Ur Phencyclidine Scrn Negative Ur Amphetamines Screen Negative U Benzodiazepines Scrn Negative Urine Cocaine Screen Negative U Marijuana (THC) Screen Positive H Ethyl Alcohol < 10 Any abnormalities on the physical exam?: No Any abnormal labs?: No Abnormal Labs: Abnormal lab results Hct 34.3 % (35.3-44.9) L 11/27/18 15:23 MPV 9.0 fL (9.4-12.4) L 11/27/18 15:23 Sodium 133 mEq/L (136-145) L 11/27/18 15:23 Glucose 114 mg/dL (70-105) H 11/27/18 15:23 Calculated Osmolality 275 (280-300) L 11/27/18 15:23 Ur Specific Jackson 1.006 (1.010-1.025) L 11/27/18 15:10 Salicylates < 2.5 mg/dL (15.0-30.0) L 11/27/18 15:23 Acetaminophen < 10 mcg/mL (10-20) L 11/27/18 15:23 U Marijuana (THC) Screen Positive ng/mL (Cutoff = 50) H 11/27/18 15:10 Does the patient require durable medical equiptment?: No Is the patient ambulatory?: Yes Is the patient a fall risk?: No Has the patient been medically cleared?: Yes Any acute medical condition require Tx prior to transfer?: No Statement of Medical Clearance: I have evaluated the patient, reviewed diagnostic information, and certify that the patient's medical condition is sufficiently stable that transfer to the psychiatric unit does not pose a significant risk of deterioration.
[2018-11-27 15:22] LABS: Bilirubin,Urine Negative (Negative); Blood,Urine Negative (Negative); Clarity,Urine Clear (Clear); Color,Urine Yellow (Yellow); Glucose,Urine (UA) Normal (Normal); Ketones,Urine Negative (Negative); Leukocyte Esterase,Urine Negative (Negative); Nitrite,Urine Negative (Negative); PH,Urine 6.5 pH Units (5.0-8.0); Protein,Urine Negative (Neg-Trace); Specific Gravity,Urine 1.006 (1.010-1.025); Urobilinogen,Urine Normal (Normal)
[2018-11-27 15:45] LABS: Amphetamine Screen,Urine Negative ng/mL (Cutoff=1000); Barbiturate Screen,Urine Negative ng/mL (Cutoff=200); Benzodiazepines Screen,Urine Negative ng/mL (Cutoff=200); Cannabinoid Screen,Urine Positive ng/mL (Cutoff = 50); Cocaine Screen,Urine Negative ng/mL (Cutoff= 300); Opiate Screen,Urine Negative ng/mL (Cutoff=300); Phencyclidine Screen,Urine Negative ng/mL (Cutoff=25)
[2018-11-27 15:50] LABS: Basophils # 0.1 K/mcL (0.0-0.2); Basophils % 0.8 %; Eosinophils # 0.2 K/mcL (0.0-0.6); Hematocrit 34.3 % (35.3-44.9); Hemoglobin 11.7 g/dL (11.5-15.4); Immature Granulocytes % 0.2 % (0-4); Lymphocytes # 1.8 K/mcL (0.6-4.6); Lymphocytes % 30.3 %; Mean Corpuscular HGB Conc 34.1 g/dL (31.6-35.5); Mean Corpuscular Hemoglobin 30.5 pg (28.0-33.3); Mean Corpuscular Volume 89.3 fL (83.0-100.0); Monocytes # 0.5 K/mcL (0.0-1.3); Monocytes % 8.9 %; Neutrophils # 3.4 K/mcL (1.6-8.9); Platelet Count 273 K/mcL (140-400); Red Blood Count 3.84 M/mcL (3.82-4.97); Red Cell Distribution Width 13.6 % (11.5-14.5); Segmented Neutrophils % 55.8 %
[2018-11-27 16:15] LABS: Acetaminophen < 10 mcg/mL (10-20); BUN/Creatinine Ratio 10 (6-26); Blood Urea Nitrogen 8 mg/dL (8-23); Calcium 8.7 mg/dL (8.6-10.3); Carbon Dioxide 28 mEq/L (23-29); Chloride 104 mEq/L (98-107); Ethanol < 10 mg/dL (Less than 10); Glucose 114 mg/dL (70-105); Osmolality,Calculated 275 (280-300); Salicylate < 2.5 mg/dL (15.0-30.0); Sodium 133 mEq/L (136-145); eGFR For Non-African Americans > 60 (> 60)
[2018-11-27] MEDS ORDERED: *HR* LORazepam 1 MG TABLET PO ONE (16:16)
[2018-11-27] MEDS ORDERED: Ziprasidone injection 20 MG/ML VIAL IM ONE (18:59)
[2018-11-27] MEDS ORDERED: traZODone 50 MG TABLET PO PRN (19:56)
[2018-11-27] MEDS ORDERED: MOM Conc 10 ML UD.LIQ PO PRN (19:56)
[2018-11-27] MEDS ORDERED: *HR* LORazepam 2 MG/ML VIAL IM PRN (19:56)
[2018-11-27] MEDS ORDERED: *HR* LORazepam 1 MG TABLET PO PRN (19:56)
[2018-11-27] MEDS ORDERED: Ibuprofen 400 MG TABLET PO PRN (19:56)
[2018-11-27] MEDS ORDERED: FLUPHENAZINE 2.5 MG/ML IM PRN (20:32)
[2018-11-27] MEDS ORDERED: Ziprasidone 20 MG CAPSULE PO SCH (21:00)
[2018-11-27] MEDS: clonazePAM 0.5 MG TABLET PO SCH (21:40)
[2018-11-27] MEDS: OLANZapine 5 MG TAB.RAPDIS PO SCH (21:40)
[2018-11-27] MEDS: traZODone 50 MG TABLET PO SCH (21:40)
[2018-11-27] MEDS: Gabapentin 400 MG CAPSULE PO SCH (21:40)
[2018-11-28] MEDS: lamoTRIgine 100 MG TABLET PO SCH (09:30)
[2018-11-28] MEDS: OLANZapine 5 MG TAB.RAPDIS PO SCH (09:30)
[2018-11-28] MEDS: clonazePAM 0.5 MG TABLET PO SCH ×3 (09:30→21:24)
[2018-11-28] MEDS: Gabapentin 400 MG CAPSULE PO SCH ×3 (09:30→21:24)
[2018-11-28] MEDS: Nicotine 21 MG PATCH.TD24 TD SCH (09:31)
--- NOTE | 2018-11-28 12:38 | Psychiatry History & Physical ---
Date of Encounter: 11/28/18 Time of Encounter: 12:32 History of Present Illness Patient Stated Chief Complaint: suicidal ideation Medicare Admission Attestation: For traditional Medicare patients the provided hospital inpatient services are reasonable and necessary and in the case of services not specified as inpatient-only under 42 CFR 419.22 (n), that they are appropriately provided as inpatient services in accordance 42 CFR 412.3. For Critical Access Hospital the patient may reasonably be expected to be discharged or transferred to a hospital within 96 hours after admission to the Critical Access Hospital. Admitted From: Home Plans for Post Hospital Care: Home History of Present Illness: Ms. El is a 68 year old female with a long history of Bipolar Disorder that was admitted with worsening depression and SI. No current psychosis although client endorses past episodes of psychosis. Reports "numerous" prior admissions. No suicide attempts in years. Has chronic pain in back. Smokes THC daily to help control pain. Also takes Neurontin. Linked with mental health services in the community. Prescribed Lamictal, Seroquel, Remeron, Klonopin and Zyprexa prn. Client concerned about weight gain with meds in addition to feeling too tired during the day. Discussed options. Current plan to eliminate Zyprexa as a prn and put all of the Seroquel at night. Will also stop Remeron as it is at a very low dose and she has plenty of other sedating meds. Will continue with Lamictal and Klonopin for now and add low dose Wellbutrin in the morning to help with depressive symptoms like low mood, lack of motivation, lack of energy, not wanting to care for ADLs, etc. Discussed how Wellbutrin could precipitate landen/psychosis but that she was already taking multiple medications with mood stabilizing properties so she will hopefully be protected. Past Med Surg Social Fam HX - Past Medical History Medical history: arthritis, cancer, COPD, fibromyalgia, hepatitis, other - Past Psychiatric History Psychiatric history: Reports: bipolar, depression, prior suicide attempt, previous psychiatric hospitalization Family psychiatric history: Unknown Family History of Suicide: Unknown - Past Surgical History Surgical History: cholecystectomy, hysterectomy - Social History Smoking Status: Current every day smoker Smokeless Tobacco Status: No Alcohol use: occasionally Drug use: opiates, marijuana - Family History Father Adopted: No Family Member Ethnicity: Non- Living Status: Hx Family Cardiac Disorders: No Hx Family Respiratory Disorders: Yes (copd) Hx Family Cancer: No Hx Family GI Disorders: Yes (ulcers) Hx Family Genitourinary Disorders: No Hx Family Endocrine Disorder: No Hx Family Musculoskeletal Disorders: No Hx Family Neuromuscular Disorders: No Hx Family Neurologic Disorders: No Hx Family HEENT Disorders: No Hx Family Autoimmune Disorders: No Hx Family Reproductive Disorders: No Hx Family Psychosocial Disorders: No Hx Family Medical Disorders: No Medications & Allergies Ergocalciferol (VITAMIN D2) [Drisdol (50,000 Unit)] 50,000 unit PO TU 10/31/17 [History] Gabapentin [Neurontin] 400 mg PO TID 10/31/17 [History] Levothyroxine Sodium [Synthroid] 137 mcg PO DAILY 10/31/17 [History] Omeprazole [PriLOSEC] 40 mg PO DAILY 10/31/17 [History] Mirtazapine [Remeron] 7.5 mg PO HS #14 tablet 11/05/17 [Rx] Quetiapine Fumarate [Seroquel] 200 mg PO HS #30 tablet 11/05/17 [Rx] lamoTRIgine [Lamictal] 150 mg PO DAILY #14 tablet 11/05/17 [Rx] OLANZapine [Zyprexa] 5 mg PO QID 11/27/18 [History] Quetiapine Fumarate [SEROquel] 100 mg PO DAILY 11/27/18 [History] Trazodone HCl 100 mg PO HS 11/27/18 [History] clonazePAM [Klonopin] 0.5 mg PO TID 11/27/18 [History] Allergy/AdvReac Type Severity Reaction Status Date / Time codeine Allergy See Verified 11/27/18 18:42 Comments haloperidol Allergy Anxiety Verified 11/27/18 18:42 Review of Systems Constitutional: Denies: fever, chills, weakness, weight change Eyes: Denies: eye pain, vision change Ears, Nose, Throat: Denies: ear pain, throat pain, dental pain, hearing loss, congestion Cardiovascular: Denies: chest pain, palpitations, dyspnea on exertion Respiratory: Denies: cough, dyspnea, wheezes Gastrointestinal: Denies: abdominal pain, nausea, vomiting, diarrhea, constipation Genitourinary female: Denies: urgency, dysuria, frequency, abnormal menses, dyspareunia Musculoskeletal: Reports: back pain Integumentary: Denies: rash, lesions, pruritus Neurological: Denies: headache, weakness, numbness, memory loss Endocrine: Denies: fatigue, heat or cold intolerance Hematologic/Lymphatic: Denies: easy bruising, lymphadenopathy Allergic/Immunologic: Denies: urticaria, itchy eyes Exam - HEENT Head exam IM: Present: atraumatic Eye exam IM: Present: EOMI, normal appearance, PERRL ENT exam IM: Present: normal exam - Neurological Neurological exam: Present: CN II-XII intact - Respiratory Respiratory exam IM: Present: accessory muscle use - GI/Abdominal GI/Abdominal exam IM: Present: normal bowel sounds, soft. Absent: tenderness - Extremities Extremities exam IM: Present: full ROM - Skin Skin exam IM: Present: dry, warm - Constitutional Vitals: Temp Pulse Resp BP Pulse Ox 97.7 F 104 15 128/84 97 11/28/18 09:00 11/28/18 09:00 11/28/18 09:00 11/28/18 09:00 11/28/18 09:00 General appearance: disheveled - Musculoskeletal Gait: normal Station: relaxed Strength & Tone: normal for patient - Psychiatric Patient Orientation: Yes Person, Yes Time, Yes Place Level of alertness: Alert Behavior: calm, cooperative Psychomotor activity: Normal Eye Contact: Maintains Eye Contact Mood Description: Depressed Affect description: congruent with mood Speech Volume: Normal Speech pattern: normal rate, normal rhythm, normal tone, fluent, spontaneous Language & Vocabulary: consistent with education Thought Process: Logical Thought Content: Yes Suicidal ideation, No Homicidal ideation, No Overt delusions Perceptual Disturbances: No Auditory hallucinations, No Visual hallucinations Attention Span Ability: Capable of Focused Attention Memory Description: Grossly Intact Patient Reliability: Reliable Historian Fund of knowledge: Yes abstraction ability, Yes average, Yes aware of current events Intelligence Estimate: Average Judgment: Fair Insight: Partial Results - Drug Levels and Toxicology Drug Levels and Toxicology: Drug Levels and Toxicity 11/27/18 11/27/18 15:10 15:23 Urine Opiates Screen Negative Acetaminophen < 10 L Ur Barbiturates Screen Negative Ur Phencyclidine Scrn Negative Ur Amphetamines Screen Negative U Benzodiazepines Scrn Negative Urine Cocaine Screen Negative U Marijuana (THC) Screen Positive H Ethyl Alcohol < 10 - Labs Labs: Laboratory Last Values WBC 6.1 K/mcL (4.3-11.1) 11/27/18 15:23 RBC 3.84 M/mcL (3.82-4.97) 11/27/18 15:23 Hgb 11.7 g/dL (11.5-15.4) 11/27/18 15:23 Hct 34.3 % (35.3-44.9) L 11/27/18 15:23 MCV 89.3 fL (83.0-100.0) 11/27/18 15: MCH 30.5 pg (28.0-33.3) 11/27/18 15:23 MCHC 34.1 g/dL (31.6-35.5) 11/27/18 15:23 RDW 13.6 % (11.5-14.5) 11/27/18 15:23 Plt Count 273 K/mcL (140-400) 11/27/18 15:23 MPV 9.0 fL (9.4-12.4) L 11/27/18 15: Immature Gran % 0.2 % (0-4) 11/27/18 15: Seg Neutrophils % 55.8 % 11/27/18 15:23 Lymphocytes % 30.3 % 11/27/18 15:23 Monocytes % 8.9 % 11/27/18 15:23 Eosinophils % 4.0 % 11/27/18 15: Basophils % 0.8 % 11/27/18 15:23 Neutrophils # 3.4 K/mcL (1.6-8.9) 11/27/18 15:23 Lymphocytes # 1.8 K/mcL (0.6-4.6) 11/27/18 15:23 Monocytes # 0.5 K/mcL (0.0-1.3) 11/27/18 15:23 Eosinophils # 0.2 K/mcL (0.0-0.6) 11/27/18 15:23 Basophils # 0.1 K/mcL (0.0-0.2) 11/27/18 15:23 Sodium 133 mEq/L (136-145) L 11/27/18 15:23 Potassium 4.0 mEq/L (3.5-5.1) 11/27/18 15:23 Chloride 104 mEq/L (98-107) 11/27/18 15:23 Carbon Dioxide 28 mEq/L (23-29) 12/28/18 15:23 BUN 8 mg/dL (8-23) 11/27/18 15:23 Creatinine 0.82 mg/dL (0.60-1.20) 11/27/18 15:23 Est GFR ( Amer) > 60 (> 60) 11/27/18 15:23 Est GFR (Non-Af Amer) > 60 (> 60) 11/27/18 15:23 BUN/Creatinine Ratio 10 (6-26) 11/27/18 15:23 Glucose 114 mg/dL (70-105) H 11/27/18 15:23 Calculated Osmolality 275 (280-300) L 11/27/18 15:23 Calcium 8.7 mg/dL (8.6-10.3) 11/27/18 15:23 Urine Color Yellow (Yellow) 11/27/18 15:10 Urine Clarity Clear (Clear) 11/27/18 15:10 Urine pH 6.5 pH Units (5.0-8.0) 11/27/18 15:10 Ur Specific [place] 1.006 (1.010-1.025) L 11/27/18 15:10 Urine Protein Negative mg/dL (Neg-Trace) 11/27/18 15:10 Urine Glucose (UA) Normal mg/dL (Normal) 11/27/18 15:10 Urine Ketones Negative mg/dL (Negative) 11/27/18 15:10 Urine Blood Negative (Negative) 11/27/18 15:10 Urine Nitrite Negative (Negative) 11/27/18 15:10 Urine Bilirubin Negative (Negative) 11/27/18 15:10 Urine Urobilinogen Normal mg/dL (Normal) 11/27/18 15:10 Ur Leukocyte Esterase Negative (Negative) 11/27/18 15:10 Salicylates < 2.5 mg/dL (15.0-30.0) L 11/27/18 15:23 Urine Opiates Screen Negative ng/mL (Jalxcs=577) 11/27/18 15:10 Acetaminophen < 10 mcg/mL (10-20) L 11/27/18 15:23 Ur Barbiturates Screen Negative ng/mL (Ugjgoe=013) 11/27/18 15:10 Ur Phencyclidine Scrn Negative ng/mL (Cutoff=25) 11/27/18 15:10 Ur Amphetamines Screen Negative ng/mL (Kuqell=1784) 11/27/18 15:10 U Benzodiazepines Scrn Negative ng/mL (Fgjrno=553) 11/27/18 15:10 Urine Cocaine Screen Negative ng/mL (Cutoff= 300) 11/27/18 15:10 U Marijuana (THC) Screen Positive ng/mL (Cutoff = 50) H 11/27/18 15:10 Ur Drug Screen Interp See Below 11/27/18 15:10 Ethyl Alcohol < 10 mg/dL (Less than 10) 11/27/18 15:23 Assessment and Plan (1) Bipolar disorder current episode depressed Current visit: No Status: Acute Plan: Admit inpatient for safety and stabilization, Close observation, Suicide Precautions per unit protocol, Encourage participation in unit milieu, Group Therapy, Monitor sleep, Monitor appetite Risks, benefits, side effects, alternatives discussed w/pt: Yes Patient agreeable to treatment: Yes Plans for Post Hospital Care: Home Estimated Length of Stay (Days): 5 Qualifiers: Current episode severity: severe Psychotic features: without psychotic features Qualified Code(s): F31.4 - Bipolar disorder, current episode depressed, severe, without psychotic features
[2018-11-28] MEDS: traZODone 50 MG TABLET PO SCH (21:24)
[2018-11-29] MEDS: Gabapentin 400 MG CAPSULE PO SCH ×3 (08:03→20:58)
[2018-11-29] MEDS: BuPROPion XL (24 HR) 150 MG TABLET PO SCH (08:03)
[2018-11-29] MEDS: lamoTRIgine 100 MG TABLET PO SCH (08:03)
[2018-11-29] MEDS: clonazePAM 0.5 MG TABLET PO SCH ×3 (08:04→20:58)
[2018-11-29] MEDS: Nicotine 21 MG PATCH.TD24 TD SCH (08:06)
[2018-11-29] MEDS ORDERED: FLUPHENAZINE 2.5 MG/ML IM ONE (10:14)
--- NOTE | 2018-11-29 10:41 | Psychiatry Progress Note ---
Date of Encounter: 11/29/18 Time of Encounter: 10:37 Subjective Interval history: Client reports she is feeling a little better but is "still going through something right now." Continues to endorse "haunting" SI. Continues to look depressed but she is more put together than she was yesterday. She has more color in her face, her hair is combed, and her clothes are less disheveled. She is wanting to stop the Seroquel secondary to weight gain and take Abilify instead. We discussed this as a possible med change yesterday but instead stopped the Zyprexa and Remeron and added Wellbutrin. Seroquel was moved to hs as well. Client is wanting more med changes today but this newspaper writer suggested we leave her med regimen alone for a day or two and let her adjust, as too many changes at once can be destabilizing. She is very focused on her weight but she did not sleep well last night and stopping 300mg of Seroquel at once will not help. She needs to look at tapering this medication and will likely need a different sleep aide as well. Review of Systems Constitutional: Denies: fever, chills, weakness, weight change Eyes: Denies: eye pain, vision change Ears, Nose, Throat: Denies: ear pain, throat pain, dental pain, hearing loss, congestion Cardiovascular: Denies: chest pain, palpitations, dyspnea on exertion Respiratory: Denies: cough, dyspnea, wheezes Gastrointestinal: Denies: abdominal pain, nausea, vomiting, diarrhea, constipation Musculoskeletal: Denies: joint swelling, joint pain Neurological: Denies: headache, weakness, numbness, memory loss Results - Vital Signs Vital Signs: Temp Pulse Resp BP Pulse Ox 98.6 F 104 16 144/86 96 11/28/18 21:00 11/28/18 21:00 11/28/18 21:00 11/28/18 21:00 11/28/18 21:00 Assessment and Plan (1) Bipolar disorder current episode depressed Current visit: No Status: Acute Plan: Continue hospitalization, Close observation, Suicide Precautions per unit protocol, Encourage participation in unit milieu, Group Therapy, Monitor sleep, Monitor appetite Risks, benefits, side effects, alternatives discussed w/pt: Yes Patient agreeable to treatment: Yes Qualifiers: Current episode severity: severe Psychotic features: without psychotic features Qualified Code(s): F31.4 - Bipolar disorder, current episode depressed, severe, without psychotic features Consult Discharge Plan - Plan Referrals: NONE,PCP [Primary Care Provider] - Psychiatry Exam - Constitutional Vitals: Temp Pulse Resp BP Pulse Ox 98.6 F 104 16 144/86 96 11/28/18 21:00 11/28/18 21:00 11/28/18 21:00 11/28/18 21:00 11/28/18 21:00 General appearance: age & developmentally appropriate, well-groomed, well- nourished - Musculoskeletal Gait: normal Station: relaxed Strength & Tone: normal for patient - Psychiatric Patient Orientation: Yes Person, Yes Time, Yes Place Level of alertness: Alert Behavior: calm, cooperative Psychomotor activity: Normal Eye Contact: Minimal Contact Mood Description: Depressed Affect description: congruent with mood Speech Volume: Normal Speech pattern: normal rate, normal rhythm, normal tone, fluent, spontaneous Language & Vocabulary: consistent with education Thought Process: Linear Thought Content: Yes Suicidal ideation, No Homicidal ideation, No Overt delusions Perceptual Disturbances: No Auditory hallucinations, No Visual hallucinations Attention Span Ability: Capable of Focused Attention Memory Description: Grossly Intact Patient Reliability: Reliable Historian Fund of knowledge: Yes abstraction ability, Yes aware of current events Intelligence Estimate: Average Judgment: Limited Insight: Partial
[2018-11-29] MEDS: traZODone 50 MG TABLET PO SCH (20:59)
[2018-11-30] MEDS: Mag Hydrox/Al Hydrox/Simeth 30 ML UDC PO PRN ×2 (03:44→21:53)
[2018-11-30] MEDS: Nicotine 21 MG PATCH.TD24 TD SCH (09:22)
[2018-11-30] MEDS: BuPROPion XL (24 HR) 150 MG TABLET PO SCH (09:22)
[2018-11-30] MEDS: Gabapentin 400 MG CAPSULE PO SCH ×3 (09:22→20:41)
[2018-11-30] MEDS: lamoTRIgine 100 MG TABLET PO SCH (09:22)
[2018-11-30] MEDS: clonazePAM 0.5 MG TABLET PO SCH ×3 (09:22→20:41)
--- NOTE | 2018-11-30 11:57 | Psychiatry Progress Note ---
Date of Encounter: 11/30/18 Time of Encounter: 11:52 Subjective Interval history: Client reports ongoing depression. States she is too depressed to even know if she is suicidal or not. Anxious last night. Requested Ativan. Acted out when offered Benadryl and Vistaril instead. Received prn Prolixin and Benadryl for her agitation. Ativan discontinued from med list as client made it clear she was going to "choose my words carefully from now on so that I get what I want." Today client states "older people are screwed. Can't get nothing for pain. Can't get nothing for anxiety." Blames younger generation for abusing meds and that is why doctors do not want to prescribe controlled substances anymore. Asking again for Calin. Claims it worked for her in the past. Will go ahead and start this today and start weaning off of Seroqeul. Review of Systems Constitutional: Denies: fever, chills, weakness, weight change Eyes: Denies: eye pain, vision change Ears, Nose, Throat: Denies: ear pain, throat pain, dental pain, hearing loss, congestion Cardiovascular: Denies: chest pain, palpitations, dyspnea on exertion Respiratory: Denies: cough, dyspnea, wheezes Gastrointestinal: Denies: abdominal pain, nausea, vomiting, diarrhea, constipation Musculoskeletal: Denies: joint swelling, joint pain Neurological: Denies: headache, weakness, numbness, memory loss Results - Vital Signs Vital Signs: Temp Pulse Resp BP Pulse Ox 97.9 F 99 18 122/83 98 11/30/18 09:00 11/30/18 09:00 11/30/18 09:00 11/30/18 09:00 11/30/18 09:00 Assessment and Plan (1) Bipolar disorder current episode depressed Current visit: No Status: Acute Plan: Continue hospitalization, Close observation, Suicide Precautions per unit protocol, Encourage participation in unit milieu, Group Therapy, Monitor sleep, Monitor appetite Risks, benefits, side effects, alternatives discussed w/pt: Yes Patient agreeable to treatment: Yes Qualifiers: Current episode severity: severe Psychotic features: without psychotic features Qualified Code(s): F31.4 - Bipolar disorder, current episode depressed, severe, without psychotic features Consult Discharge Plan - Plan Referrals: NONE,PCP [Primary Care Provider] - Psychiatry Exam - Constitutional Vitals: Temp Pulse Resp BP Pulse Ox 97.9 F 99 18 122/83 98 11/30/18 09:00 11/30/18 09:00 11/30/18 09:00 11/30/18 09:00 11/30/18 09:00 General appearance: disheveled - Musculoskeletal Gait: normal Station: relaxed Strength & Tone: normal for patient - Psychiatric Patient Orientation: Yes Person, Yes Time, Yes Place Level of alertness: Alert Behavior: calm, cooperative Psychomotor activity: Normal Eye Contact: Maintains Eye Contact Mood Description: Depressed, Anxious Affect description: congruent with mood Speech Volume: Normal Speech pattern: normal rate, normal rhythm, normal tone, fluent, spontaneous Language & Vocabulary: consistent with education Thought Process: Linear Thought Content: Yes Suicidal ideation, No Homicidal ideation, No Overt delusions Perceptual Disturbances: No Auditory hallucinations, No Visual hallucinations Attention Span Ability: Capable of Focused Attention Memory Description: Grossly Intact Patient Reliability: Reliable Historian Fund of knowledge: Yes abstraction ability, Yes aware of current events Intelligence Estimate: Average Judgment: Limited Insight: Partial
[2018-11-30] MEDS: ARIPiprazole 5 MG TABLET PO SCH (13:18)
[2018-11-30] MEDS: traZODone 50 MG TABLET PO SCH (20:42)
[2018-12-01] MEDS: BuPROPion XL (24 HR) 150 MG TABLET PO SCH (10:19)
[2018-12-01] MEDS: clonazePAM 0.5 MG TABLET PO SCH ×3 (10:19→20:48)
[2018-12-01] MEDS: ARIPiprazole 5 MG TABLET PO SCH (10:19)
[2018-12-01] MEDS: Gabapentin 400 MG CAPSULE PO SCH ×3 (10:20→20:48)
[2018-12-01] MEDS: lamoTRIgine 100 MG TABLET PO SCH (10:20)
[2018-12-01] MEDS: Nicotine 21 MG PATCH.TD24 TD SCH (10:21)
--- NOTE | 2018-12-01 11:45 | Psychiatry Progress Note ---
Date of Encounter: 12/01/18 Time of Encounter: 11:41 Subjective Interval history: Doing better. "I'm not having any bad thoughts." Thinks she will be ready to go this week. Endorsing SI as recently as last night but nothing so far today. Continuing to cross titrate Abilify and Seroquel but if she continues to feel this improved can likely go before the end of the week. Will tentatively plan on . Despite the decreased dose in Seroquel client reported she slept well last night. Does seem to be a little brighter today. Irritable when she first arrived on the unit but more pleasant today. Not complaining about lack of sedatives and pain meds today. Seems improved. Review of Systems Constitutional: Denies: fever, chills, weakness, weight change Eyes: Denies: eye pain, vision change Ears, Nose, Throat: Denies: ear pain, throat pain, dental pain, hearing loss, congestion Cardiovascular: Denies: chest pain, palpitations, dyspnea on exertion Respiratory: Denies: cough, dyspnea, wheezes Gastrointestinal: Denies: abdominal pain, nausea, vomiting, diarrhea, constipation Musculoskeletal: Denies: joint swelling, joint pain Neurological: Denies: headache, weakness, numbness, memory loss Results - Vital Signs Vital Signs: Temp Pulse Resp BP Pulse Ox 98.3 F 74 16 136/87 97 11/30/18 21:00 11/30/18 21:00 11/30/18 21:00 11/30/18 21:00 11/30/18 21:00 Assessment and Plan (1) Bipolar disorder current episode depressed Current visit: No Status: Acute Plan: Continue hospitalization, Close observation, Suicide Precautions per unit protocol, Encourage participation in unit milieu, Group Therapy, Monitor sleep, Monitor appetite Risks, benefits, side effects, alternatives discussed w/pt: Yes Patient agreeable to treatment: Yes Qualifiers: Current episode severity: severe Psychotic features: without psychotic features Qualified Code(s): F31.4 - Bipolar disorder, current episode depressed, severe, without psychotic features Consult Discharge Plan - Plan Referrals: NONE,PCP [Primary Care Provider] - Psychiatry Exam - Constitutional Vitals: Temp Pulse Resp BP Pulse Ox 98.3 F 74 16 136/87 97 11/30/18 21:00 11/30/18 21:00 11/30/18 21:00 11/30/18 21:00 11/30/18 21:00 General appearance: age & developmentally appropriate - Musculoskeletal Gait: normal Station: relaxed Strength & Tone: normal for patient - Psychiatric Patient Orientation: Yes Person, Yes Time, Yes Place Level of alertness: Alert Behavior: calm, cooperative Psychomotor activity: Normal Eye Contact: Maintains Eye Contact Mood Description: Depressed Affect description: congruent with mood Speech Volume: Normal Speech pattern: normal rate, normal rhythm, normal tone, fluent, spontaneous Language & Vocabulary: consistent with education Thought Process: Linear Thought Content: No Suicidal ideation, No Homicidal ideation, No Overt delusions Perceptual Disturbances: No Auditory hallucinations, No Visual hallucinations Attention Span Ability: Capable of Focused Attention Memory Description: Grossly Intact Patient Reliability: Reliable Historian Fund of knowledge: Yes abstraction ability, Yes aware of current events Intelligence Estimate: Average Judgment: Limited Insight: Partial
[2018-12-01] MEDS: traZODone 50 MG TABLET PO SCH (20:48)
[2018-12-02] MEDS: BuPROPion XL (24 HR) 150 MG TABLET PO SCH (08:28)
[2018-12-02] MEDS: lamoTRIgine 100 MG TABLET PO SCH (08:28)
[2018-12-02] MEDS: Nicotine 21 MG PATCH.TD24 TD SCH (08:29)
[2018-12-02] MEDS: clonazePAM 0.5 MG TABLET PO SCH ×3 (08:29→21:02)
[2018-12-02] MEDS: Gabapentin 400 MG CAPSULE PO SCH ×3 (08:29→21:02)
[2018-12-02] MEDS: ARIPiprazole 10 MG TABLET PO SCH (08:29)
--- NOTE | 2018-12-02 11:08 | Psychiatry Progress Note ---
Date of Encounter: 12/02/18 Time of Encounter: 11:00 Subjective Interval history: Pt is a 68yo, , female, who presents for mood and depression. Pt noted that she feels she is improving slowly. Pt noted she is optimistic to return home. Pt denied any side effects to current medications. Pt noted she felt safe and comfortable on the unit. Pt was in agreement with treatment plan. Pt noted that she is doing pretty good today. Pt noted she slept 6 hours last night. Pt noted her appetite is okay. Pt rated her depression a 2, on a scale of zero to ten with ten being the worst and zero being none. Pt rate her anxiety a 0, on the same scale. Pt denied any auditory or visual hallucinations. Pt denied any thoughts to harm herself or anyone else. No TD noted, No EPS noted, AIMS=0 1.Interval hx 2.Continue current medications 3.Review current labs 4.Pt had an opportunity to ask questions and discuss current treatment plan. 5.Supportive therapy was provided 6.Pt encouraged to consider group or individual therapy 7.Pt was in agreement with treatment plan. 8.Pt was educated on the risks benefits and side effects of current medications. Continuing to cross titrate Abilify and Seroquel but if she continues to feel this improved can likely go before the end of the week. Review of Systems Constitutional: Denies: fever, chills, weakness, weight change Eyes: Denies: eye pain, vision change Ears, Nose, Throat: Denies: ear pain, throat pain, dental pain, hearing loss, congestion Cardiovascular: Denies: chest pain, palpitations, dyspnea on exertion Respiratory: Denies: cough, dyspnea, wheezes Gastrointestinal: Denies: abdominal pain, nausea, vomiting, diarrhea, constipa tion Musculoskeletal: Denies: joint swelling, joint pain Neurological: Denies: headache, weakness, numbness, memory loss Results - Vital Signs Vital Signs: Temp Pulse Resp BP Pulse Ox 98.2 F 89 16 112/78 97 12/02/18 09:00 12/02/18 09:00 12/02/18 09:00 12/02/18 09:00 12/02/18 09:00 Assessment and Plan (1) Suicidal ideation Current visit: Yes Status: Acute Plan: Continue hospitalization, Close observation, Suicide Precautions per unit protocol, Encourage participation in unit milieu, Group Therapy, Monitor sleep, Monitor appetite Risks, benefits, side effects, alternatives discussed w/pt: Yes Patient agreeable to treatment: Yes (2) Bipolar disorder current episode depressed Current visit: No Status: Acute Plan: Continue hospitalization, Close observation, Suicide Precautions per unit protocol, Encourage participation in unit milieu, Group Therapy, Monitor sleep, Monitor appetite Risks, benefits, side effects, alternatives discussed w/pt: Yes Patient agreeable to treatment: Yes Qualifiers: Current episode severity: severe Psychotic features: without psychotic features Qualified Code(s): F31.4 - Bipolar disorder, current episode depressed, severe, without psychotic features Consult Discharge Plan - Plan Referrals: NONE,PCP [Primary Care Provider] - Psychiatry Exam - Constitutional Vitals: Temp Pulse Resp BP Pulse Ox 98.2 F 89 16 112/78 97 12/02/18 09:00 12/02/18 09:00 12/02/18 09:00 12/02/18 09:00 12/02/18 09:00 General appearance: age & developmentally appropriate, well-groomed, well- nourished - Musculoskeletal Gait: normal Station: relaxed Strength & Tone: normal for patient - Psychiatric Patient Orientation: Yes Person, Yes Time, Yes Place Level of alertness: Alert Behavior: calm, cooperative Psychomotor activity: Normal Eye Contact: Maintains Eye Contact Mood Description: Euthymic/stable Affect description: congruent with mood, full range Speech Volume: Normal Speech pattern: normal rate, normal rhythm, normal tone, fluent, spontaneous Language & Vocabulary: consistent with education Thought Process: Linear, Goal Oriented Thought Content: No Suicidal ideation, No Homicidal ideation, No Overt delusions Perceptual Disturbances: No Auditory hallucinations, No Visual hallucinations Attention Span Ability: Capable of Focused Attention Memory Description: Grossly Intact Patient Reliability: Reliable Historian Fund of knowledge: Yes abstraction ability, Yes aware of current events Intelligence Estimate: Average Judgment: Limited Insight: Partial
[2018-12-02] MEDS: Mag Hydrox/Al Hydrox/Simeth 30 ML UDC PO PRN (12:29)
[2018-12-02] MEDS: hydrOXYzine pamoate 25 MG CAPSULE PO PRN ×2 (17:33→21:02)
[2018-12-02] MEDS: traZODone 50 MG TABLET PO SCH (21:02)
[2018-12-03 08:26] VITALS: BP 115/77
[2018-12-03] MEDS: lamoTRIgine 100 MG TABLET PO SCH (08:27)
[2018-12-03] MEDS: ARIPiprazole 10 MG TABLET PO SCH (08:28)
[2018-12-03] MEDS: clonazePAM 0.5 MG TABLET PO SCH (08:28)
[2018-12-03] MEDS: Gabapentin 400 MG CAPSULE PO SCH (08:29)
[2018-12-03] MEDS: Nicotine 21 MG PATCH.TD24 TD SCH (08:29)
[2018-12-03] MEDS: BuPROPion XL (24 HR) 150 MG TABLET PO SCH (08:29)
--- NOTE | 2018-12-03 10:27 | Discharge Summary ---
Date of Encounter: 12/03/18 Time of Encounter: 10:00 Diagnosis - Discharge Diagnosis (1) Suicidal ideation Status: Acute (2) Bipolar disorder current episode depressed Status: Acute Qualifiers: Current episode severity: severe Psychotic features: without psychotic features Qualified Code(s): F31.4 - Bipolar disorder, current episode depressed, severe, without psychotic features Medications - Discharge Medications Prescriptions: ARIPiprazole [Abilify] 15 mg PO DAILY #30 tablet BuPROPion XL (24 HR) [Wellbutrin Xl] 300 mg PO DAILY #30 tab.er.24h traZODone [TraZODone] 50 mg PO HS PRN #30 tablet PRN Reason: Insomnia Ergocalciferol (VITAMIN D2) [Drisdol (50,000 Unit)] 50,000 unit PO TU 10/31/17 [History] Gabapentin [Neurontin] 400 mg PO TID 10/31/17 [History] Levothyroxine Sodium [Synthroid] 137 mcg PO DAILY 10/31/17 [History] Omeprazole [PriLOSEC] 40 mg PO DAILY 10/31/17 [History] lamoTRIgine [Lamictal] 150 mg PO DAILY #14 tablet 11/05/17 [Rx] Trazodone HCl 100 mg PO HS 11/27/18 [History] clonazePAM [Klonopin] 0.5 mg PO TID 11/27/18 [History] ARIPiprazole [Abilify] 15 mg PO DAILY #30 tablet 12/03/18 [Rx] BuPROPion XL (24 HR) [Wellbutrin Xl] 300 mg PO DAILY #30 tab.er.24h 12/03/18 [Rx] traZODone [TraZODone] 50 mg PO HS PRN #30 tablet 12/03/18 [Rx] Allergy/AdvReac Type Severity Reaction Status Date / Time codeine Allergy See Verified 11/27/18 18:42 Comments haloperidol Allergy Anxiety Verified 11/27/18 18:42 Results Procedures and tests throughout hospitalization: Completed Lab Orders Category Date Time Status Acetaminophen Stat Lab 11/27/18 15:23 Completed Basic Metabolic Panel Stat Lab 11/27/18 15:23 Completed Complete Blood Count [HEME] Stat Lab 11/27/18 15:23 Completed Drug Screen, Urine [UCHEM] Stat Lab 11/27/18 15:10 Completed Ethanol Stat Lab 11/27/18 15:23 Completed Salicylate Stat Lab 11/27/18 15:23 Completed Troponin I Stat Lab 12/03/18 01:16 Completed Urinalysis reflex Microscopic [URIN] Stat Lab 11/27/18 15:10 Completed Provider Date of admission: 11/27/18 19:13 Primary care physician: PCP NONE Consults: 12/03/18 00:54 Consult to Hospitalist [CONS] Stat Consulting Provider: Thony Scott Reason for Consult: new onset CP Time Notified: 00:55 Call Completed: Yes 11/27/18 19:52 Consult to Pastoral Services [CONS] Routine Comment: Discharging clinician: Thomas Perez Psychiatry Exam - Constitutional Vitals: Temp Pulse Resp BP Pulse Ox 98.6 F 95 18 115/77 96 12/03/18 08:25 12/03/18 08:25 12/03/18 08:25 12/03/18 08:25 12/03/18 08:25 General appearance: age & developmentally appropriate, well-groomed, well- nourished - Musculoskeletal Gait: normal Station: relaxed Strength & Tone: normal for patient - Psychiatric Patient Orientation: Yes Person, Yes Time, Yes Place Level of alertness: Alert Behavior: calm, cooperative Psychomotor activity: Normal Eye Contact: Maintains Eye Contact Mood Description: Euthymic/stable Affect description: congruent with mood, full range Speech Volume: Normal Speech pattern: normal rate, normal rhythm, normal tone, fluent, spontaneous Language & Vocabulary: consistent with education Thought Process: Linear, Goal Oriented Thought Content: No Suicidal ideation, No Homicidal ideation, No Overt delusions Perceptual Disturbances: No Auditory hallucinations, No Visual hallucinations Attention Span Ability: Capable of Focused Attention Memory Description: Grossly Intact Patient Reliability: Reliable Historian Fund of knowledge: Yes abstraction ability, Yes aware of current events Intelligence Estimate: Average Judgment: Limited Insight: Partial Hospital Course Hospital course: Pt is a 68yo, , female, who presents for mood and depression. Pt noted that she feels she is improving slowly. Pt noted she is optimistic to return home. Pt denied any side effects to current medications. Pt noted she felt safe and comfortable on the unit. Pt was in agreement with treatment plan. Pt noted that she is doing pretty good today. Pt noted she slept 8 hours last night. Pt noted her appetite is okay. Pt rated her depression a 2, on a scale of zero to ten with ten being the worst and zero being none. Pt rate her anxiety a 0, on the same scale. Pt denied any auditory or visual hallucinations. Pt denied any thoughts to harm herself or anyone else. Patient noted a significant reeducation in her depression and anxiety during her stay at [facility]. Pt noted that she slowly improved to the point that she was comfortable and safe to D/C. Pt noted she felt hers medications were working well and denied any current side effects. Treatment team encouraged Pt to stay out of bed and try to find activities to do, verbalized understanding. pt reported that she felt safe on the unit and comfortable for Home. Pt Denied suicidal/homicidal ideations, denied any problems or concerns with medications or side effects. PT voiced progression towards treatment goals and was offered a copy of updated treatment plan completed during visit today. Denied any immediate needs or concerns. Pt denied any access to guns or weapon. Pt throughout her stay on in psych pt felt like her medications were working and felt comfortable being discharged on these medications. Pt was advised to take all medications as prescribed, follow up with all scheduled appointments and abstain from any alcohol or illicit substances. Pt was in agreement. Pt felt safe and comfortable to be discharged to her home and follow up out pt mental health. Pt was very optimistic about her D/C. Pt felt safe and comfortable for D/C. Pt stated that she was doing "okay," today. Pt stated that she slept "8 hours," last night. Pt stated that her appetite is"good."Pt stated that she rates her depression a "2," on a scale of 0-10 with 10 being the worst and 0 being none. Pt stated that she rates her anxiety "a 0," on the same scale. Pt denies any auditory or visual hallucinations. Pt denied any thoughts to harm herself or anyone else. Pt felt safe and comfortable for D/C. The patient was educated primarily by verbal means about her diagnoses and their manifestations in her life. The option for treatment including group individual therapy programming was offered to her and the use of medications with all their potential risks, benefits, and side-effects were discussed with the pt at length. Pt was given the opportunity to ask questions and she participated in the treatment and planning process. Pt felt ready and eager to be discharged from the from the inpt psych unit to be discharged home. Pt felt she was safe for this disposition. Pt was considered to be able to participate in informed consent and decision-making with respect to medical, legal and financial issues at the time of her discharge. 1. Psychiatric Illness management 2. Legal Status: voluntary 3. The treatment team reviewed with the patient the diagnosis and treatment recommendations to include the risks, benefits, and side effects of chosen medications. 4. The patient verbalized understanding and agreed with the treatment regimen as outlined above. 5. The patient was encouraged to participate in groups. 6. Medical records, Labs, Diagnotic tests reviewed 7.Q15 mins checks for safety 8. Interval History. 9. Review current labs 10. Continue current medications 11. Supportive Therapy Provided 12. Pt had an opportunity to ask questions and address concerns 13. Pt encouraged to continue therapy group or individual. 14. Pt was in agreement with treatment plan. 15. The risks benefits and side effects of medications were discussed with the patient, including alternatives and no treatment. Time spent discussing smoking cessation with patient: 3 to 10 minutes Does patient wish to continue nicotine replacement upon disc: No - Time Spent with Patient Total time spent providing and/or coordinating discharge services: Greater than 30 minutes Assessment and Plan - Patient/Caregiver Discharge Instructions Activity: resume usual activities as tolerated Diet: regular diet - Follow up Plan Follow up with: NONE,PCP [Primary Care Provider] - Overall status at discharge: Stable Disposition: Home, Self-Care Quality - Multiple Antipsychotics Patient discharged on 2 or more antipsychotic medications: No - Justification Documentation of: No documentation of justification (on one antipsychotic) Procedures - Procedures Procedures: Medication Management, Crisis Stabilization, Supportive Therapy, Group Therapy, Psychoeducational Therapy
--- NOTE | 2018-12-03 16:16 | Electrocardiograph Report ---
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
== END 2018-12-03 11:15 | disposition home or self-care (01) | DRG 885 ==
LOC: EMEROOARM 14:33 → 1ANU 19:13
PROVIDERS: ADMIT General Practice; ATTEND General Practice

== ENCOUNTER 2019-09-07 06:41 | Inpatient (IN) ==
[2019-09-07] MEDS ORDERED: Albuterol 2.5 MG/3 ML NEBULIZER IH PRN (07:16)
[2019-09-07] MEDS ORDERED: CeFAZolin Syr 2,000MG/20 ML 2,000 MG/20 ML SYRINGE IVPB ONE (07:16)
[2019-09-07] MEDS ORDERED: Ringers Solution, Lactated 1,000 ML IVC SCH (07:30)
[2019-09-07] MEDS ORDERED: Famotidine 20 MG/2 ML VIAL IVP ONE (08:45)
[2019-09-07] MEDS ORDERED: Acetaminophen IV 1,000 MG/100 ML INFUS..BTL IVPB ONE (08:45)
[2019-09-07] MEDS ORDERED: Pregabalin 75 MG CAPSULE PO ONE (08:46)
[2019-09-07] MEDS ORDERED: *HR* Methadone 10 MG TABLET PO ONE (08:46)
[2019-09-07] MEDS ORDERED: Neostigmine Methylsulfate 3 MG/3 ML SYRINGE ONE ×2 (09:06→09:18)
[2019-09-07] MEDS ORDERED: Lidocaine -MPF 2% 2 ML VIAL ONE (09:06)
[2019-09-07] MEDS ORDERED: Dexamethasone 4 MG/ML VIAL ONE (09:06)
[2019-09-07] MEDS ORDERED: Ondansetron 4 MG/2 ML VIAL ONE (09:06)
[2019-09-07] MEDS ORDERED: *HR* Succinylcholine 200 MG/10 ML VIAL IVP ONE (09:06)
[2019-09-07] MEDS ORDERED: *HR* Midazolam HCl 2 MG/2 ML VIAL ONE (09:06)
[2019-09-07] MEDS ORDERED: *HR* Propofol 200 MG/20 ML VIAL IVP ONE (09:06)
[2019-09-07] MEDS ORDERED: Lidocaine HCL 4 ML Topical Solution (Laryng-O-Jet Kit Sterile Pak) TP ONE (09:07)
[2019-09-07] MEDS ORDERED: *HR* Remifentanil 1 MG VIAL IVP ONE ×2 (09:07→13:41)
[2019-09-07] MEDS ORDERED: *HR* Rocuronium Bromide 50 MG/5 ML VIAL ONE (09:18)
[2019-09-07] MEDS ORDERED: Bacitracin 50,000 UNIT, Polymyxin B Sulfate 500,000 UNIT, Sodium Chloride IRRigation 1,... IR ONE (10:20)
[2019-09-07] MEDS ORDERED: *HR* Labetalol 20 MG/4 ML SYRINGE IVP PRN (10:45)
[2019-09-07] MEDS ORDERED: Ondansetron 4 MG/2 ML VIAL IVP ONE (10:45)
[2019-09-07] MEDS ORDERED: *HR* Promethazine 25 MG/ML VIAL IVP PRN (10:45)
[2019-09-07] MEDS ORDERED: EPHEDrine 50 MG/ML VIAL ONE (11:10)
[2019-09-07] MEDS ORDERED: *HR* PHENYLEPHRINE 1,000 MCG/10 ML SYRINGE IVP ONE (11:16)
[2019-09-07] MEDS ORDERED: Albumin Human 5% 25.0 GM/500 ML VIAL ONE (13:25)
[2019-09-07] MEDS ORDERED: *HR* Vasopressin 20 UNIT/ML VIAL ONE (13:25)
[2019-09-07] MEDS ORDERED: *HR* HYDROMORPHONE 2 MG/ML VIAL ONE (14:42)
[2019-09-07] MEDS: *HR* HYDROmorphone (PF) 1 MG/ML SYRINGE IVP PRN ×3 (15:12→15:32)
[2019-09-07] MEDS ORDERED: Naloxone 0.4 MG/ML INJ IVP PRN (16:27)
[2019-09-07] MEDS ORDERED: Ondansetron 4 MG/2 ML VIAL IVP PRN (16:27)
[2019-09-07] MEDS ORDERED: tiZANidine 4 MG TABLET PO PRN (16:27)
[2019-09-07] MEDS: *HR* HYDROcodone/Acet 5/325 mg TABLET PO PRN (17:16)
[2019-09-07] MEDS: Gabapentin 400 MG CAPSULE PO SCH ×2 (18:28→20:45)
[2019-09-07] MEDS: Mirtazapine 15 MG TABLET PO SCH (20:35)
[2019-09-07] MEDS: lamoTRIgine 100 MG TABLET PO SCH (20:36)
[2019-09-07] MEDS: *HR* OxyCODONE Immed Rel 5 MG TABLET PO PRN (20:37)
[2019-09-07] MEDS: BuPROPion XL (24 HR) 150 MG TABLET PO SCH (20:37)
[2019-09-07] MEDS: traZODone 50 MG TABLET PO SCH (20:38)
[2019-09-07] MEDS: Ketorolac OPTH Soln 5 ML BOTTLE LEFT EYE SCH (20:39)
[2019-09-07] MEDS: PrednisoLONE Acetate 1% Opth 5 ML BOTTLE LEFT EYE SCH (20:46)
[2019-09-07] MEDS: BESIFLOXACIN HCL OP SCH (22:25)
[2019-09-08] MEDS: *HR* OxyCODONE Immed Rel 5 MG TABLET PO PRN ×4 (01:48→22:12)
[2019-09-08] MEDS: Acetaminophen 325 MG TABLET PO PRN (05:57)
[2019-09-08] MEDS ORDERED: 0.9 % Sodium Chloride 1,000 ML IVC SCH (06:45)
[2019-09-08 07:43] LABS: Hematocrit 28.3 % (35.3-44.9); Hemoglobin 9.2 g/dL (11.5-15.4)
[2019-09-08 07:56] LABS: BUN/Creatinine Ratio 11 (6-26); Blood Urea Nitrogen 12 mg/dL (8-23); Calcium 8.3 mg/dL (8.6-10.3); Carbon Dioxide 20 mEq/L (23-29); Chloride 110 mEq/L (98-107); Glucose 105 mg/dL (70-105); Osmolality,Calculated 284 (280-300); Sodium 137 mEq/L (136-145); eGFR For African Americans > 60 (> 60); eGFR For Non-African Americans 52 (> 60)
[2019-09-08] MEDS: BuPROPion XL (24 HR) 150 MG TABLET PO SCH ×2 (08:43→20:12)
[2019-09-08] MEDS: Gabapentin 400 MG CAPSULE PO SCH ×3 (08:43→20:12)
[2019-09-08] MEDS: lamoTRIgine 100 MG TABLET PO SCH ×2 (08:43→20:12)
[2019-09-08] MEDS: PrednisoLONE Acetate 1% Opth 5 ML BOTTLE LEFT EYE SCH ×2 (08:45→20:20)
[2019-09-08] MEDS: Ketorolac OPTH Soln 5 ML BOTTLE LEFT EYE SCH ×2 (08:46→20:13)
[2019-09-08] MEDS: BESIFLOXACIN HCL OP SCH ×2 (08:47→20:19)
[2019-09-08 13:07] LABS: Hemoglobin 9.4 g/dL (11.5-15.4)
[2019-09-08] MEDS: *HR* HYDROcodone/Acet 5/325 mg TABLET PO PRN (14:42)
[2019-09-08] MEDS: Mirtazapine 15 MG TABLET PO SCH (20:12)
[2019-09-08] MEDS: traZODone 50 MG TABLET PO SCH (20:12)
[2019-09-08] MEDS: Ringers Solution, Lactated 1,000 ML IVC SCH (22:13)
[2019-09-09] MEDS: *HR* OxyCODONE Immed Rel 5 MG TABLET PO PRN ×4 (04:07→19:32)
[2019-09-09] MEDS: Ringers Solution, Lactated 1,000 ML IVC SCH ×4 (06:59→12:52)
[2019-09-09] MEDS: Gabapentin 400 MG CAPSULE PO SCH ×3 (09:52→21:37)
[2019-09-09] MEDS: BuPROPion XL (24 HR) 150 MG TABLET PO SCH ×2 (09:52→21:38)
[2019-09-09] MEDS: lamoTRIgine 100 MG TABLET PO SCH ×2 (09:52→21:37)
[2019-09-09] MEDS: PrednisoLONE Acetate 1% Opth 5 ML BOTTLE LEFT EYE SCH ×2 (09:55→21:45)
[2019-09-09] MEDS: Ketorolac OPTH Soln 5 ML BOTTLE LEFT EYE SCH ×2 (09:55→21:45)
[2019-09-09] MEDS: BESIFLOXACIN HCL OP SCH ×2 (09:56→21:45)
[2019-09-09 10:24] LABS: Hematocrit 27.3 % (35.3-44.9); Hemoglobin 8.8 g/dL (11.5-15.4); Mean Corpuscular Hemoglobin 32.2 pg (28.0-33.3); Red Blood Count 2.73 M/mcL (3.82-4.97)
[2019-09-09 10:25] LABS: Basophils % 0.4 %; Eosinophils # 0.2 K/mcL (0.0-0.6); Immature Granulocytes % 0.3 % (0-4); Lymphocytes # 1.4 K/mcL (0.6-4.6); Lymphocytes % 15.9 %; Mean Corpuscular HGB Conc 32.2 g/dL (31.6-35.5); Mean Platelet Volume 9.7 fL (9.4-12.4); Monocytes # 1.4 K/mcL (0.0-1.3); Monocytes % 15.3 %; Neutrophils # 5.9 K/mcL (1.6-8.9); Platelet Count 160 K/mcL (140-400); Red Cell Distribution Width 12.9 % (11.5-14.5); Segmented Neutrophils % 66.1 %
[2019-09-09 10:40] LABS: BUN/Creatinine Ratio 11 (6-26); Blood Urea Nitrogen 9 mg/dL (8-23); Carbon Dioxide 22 mEq/L (23-29); Chloride 103 mEq/L (98-107); Glucose 116 mg/dL (70-105); Osmolality,Calculated 274 (280-300); Potassium 4.1 mEq/L (3.5-5.1); Sodium 132 mEq/L (136-145); eGFR For African Americans > 60 (> 60); eGFR For Non-African Americans > 60 (> 60)
[2019-09-09] MEDS: traZODone 50 MG TABLET PO SCH (21:37)
[2019-09-09] MEDS: Mirtazapine 15 MG TABLET PO SCH (21:37)
[2019-09-10] MEDS: *HR* OxyCODONE Immed Rel 5 MG TABLET PO PRN (00:01)
[2019-09-10] MEDS: Ringers Solution, Lactated 1,000 ML IVC SCH (00:04)
[2019-09-10 04:40] LABS: Basophils % 0.4 %; Eosinophils # 0.2 K/mcL (0.0-0.6); Eosinophils % 2.7 %; Hematocrit 26.6 % (35.3-44.9); Hemoglobin 8.5 g/dL (11.5-15.4); Immature Granulocytes % 0.4 % (0-4); Lymphocytes # 1.4 K/mcL (0.6-4.6); Lymphocytes % 17.6 %; Mean Corpuscular Hemoglobin 31.6 pg (28.0-33.3); Mean Corpuscular Volume 98.9 fL (83.0-100.0); Mean Platelet Volume 9.5 fL (9.4-12.4); Monocytes # 1.1 K/mcL (0.0-1.3); Monocytes % 14.1 %; Neutrophils # 5.3 K/mcL (1.6-8.9); Platelet Count 172 K/mcL (140-400); Red Blood Count 2.69 M/mcL (3.82-4.97); Red Cell Distribution Width 12.9 % (11.5-14.5); Segmented Neutrophils % 64.8 %; White Blood Count 8.1 K/mcL (4.3-11.1)
[2019-09-10 04:55] LABS: BUN/Creatinine Ratio 11 (6-26); Blood Urea Nitrogen 8 mg/dL (8-23); Calcium 8.5 mg/dL (8.6-10.3); Carbon Dioxide 27 mEq/L (23-29); Chloride 102 mEq/L (98-107); Glucose 111 mg/dL (70-105); Osmolality,Calculated 281 (280-300); Potassium 4.1 mEq/L (3.5-5.1); Sodium 136 mEq/L (136-145); eGFR For African Americans > 60 (> 60); eGFR For Non-African Americans > 60 (> 60)
[2019-09-10] MEDS: Acetaminophen 325 MG TABLET PO PRN (05:47)
[2019-09-10] MEDS: *HR* HYDROcodone/Acet 5/325 mg TABLET PO PRN ×2 (08:10→16:43)
[2019-09-10] MEDS: Gabapentin 400 MG CAPSULE PO SCH ×2 (08:10→16:43)
[2019-09-10] MEDS: BuPROPion XL (24 HR) 150 MG TABLET PO SCH (08:11)
[2019-09-10] MEDS: lamoTRIgine 100 MG TABLET PO SCH (08:11)
[2019-09-10] MEDS ORDERED: Isovue-370 500 ML BOTTLE IVP ONE (08:24)
[2019-09-10 09:47] LABS: Albumin 3.3 g/dL (3.5-5.7); Albumin/Globulin Ratio 1.5 (1.1-2.2); Bilirubin,Direct 0.3 mg/dL (0.0-0.2); Bilirubin,Total 1.3 mg/dL (0.3-1.0); Globulin 2.2 g/dL (2.4-3.5); Total Protein 5.5 g/dL (6.4-8.9)
[2019-09-10 10:03] LABS: Thyroid Stimulating Hormone 0.267 mcIU/mL (0.340-5.600)
[2019-09-10] MEDS: PrednisoLONE Acetate 1% Opth 5 ML BOTTLE LEFT EYE SCH (11:06)
[2019-09-10] MEDS: Ketorolac OPTH Soln 5 ML BOTTLE LEFT EYE SCH (11:06)
[2019-09-10] MEDS: BESIFLOXACIN HCL OP SCH (11:06)
[2019-09-10 11:46] LABS: Bilirubin,Urine Negative (Negative); Blood,Urine Negative (Negative); Clarity,Urine Clear (Clear); Color,Urine Yellow (Yellow); Glucose,Urine (UA) Normal (Normal); Ketones,Urine Negative (Negative); Leukocyte Esterase,Urine Negative (Negative); Nitrite,Urine Negative (Negative); Protein,Urine Negative (Neg-Trace); Urobilinogen,Urine Normal (Normal)
[2019-09-10] MEDS: Ipratropium/Albuterol Neb 3 ML IH SCH ×2 (15:32→15:54)
[2019-09-10 16:43] VITALS: BP 121/76
[2019-09-10] MEDS ORDERED: FLU Vac QV 19-20 (6Month+)/PF 0.5 ML SYRINGE IM ONE (16:50)
== END 2019-09-10 19:07 | DRG 453 ==
LOC: SAMDAY 06:41 → 3NENU 16:22
PROVIDERS: ADMIT Orthopaedic Surgery Orthopaedic Surgery of the Spine; ATTEND Orthopaedic Surgery Orthopaedic Surgery of the Spine

== ENCOUNTER 2020-08-18 17:52 | Inpatient (IN) ==
[2020-08-18 18:52] LABS: Bacteria,Urine Few per hpf (None-Few); Bilirubin,Urine Negative (Negative); Blood,Urine Negative (Negative); Clarity,Urine Clear (Clear); Color,Urine Yellow (Yellow); Glucose,Urine (UA) Normal (Normal); Hyaline Casts,Urine Moderate per lpf (None Seen); Ketones,Urine Negative (Negative); Leukocyte Esterase,Urine Small (Negative); Mucus,Urine Few per lpf (None-Few); Nitrite,Urine Negative (Negative); PH,Urine 6.5 pH Units (5.0-8.0); Protein,Urine Trace mg/dL (Neg-Trace); RBC,Urine 0-3 per hpf (0-3); Specific Gravity,Urine 1.018 (1.010-1.025); Squamous Epithelial Cell,Urine Few per hpf (None-Few); Urobilinogen,Urine Normal (Normal); WBC,Urine 0-3 per hpf (0-3)
[2020-08-18 18:57] LABS: Amphetamine Screen,Urine Negative ng/mL (Cutoff=1000); Barbiturate Screen,Urine Negative ng/mL (Cutoff=200); Benzodiazepines Screen,Urine Negative ng/mL (Cutoff=200); Cannabinoid Screen,Urine Negative ng/mL (Cutoff = 50); Cocaine Screen,Urine Negative ng/mL (Cutoff= 300); Opiate Screen,Urine Negative ng/mL (Cutoff=300); Phencyclidine Screen,Urine Negative ng/mL (Cutoff=25)
[2020-08-18 19:56] LABS: Basophils # 0.1 K/mcL (0.0-0.2); Basophils % 0.9 %; Eosinophils # 0.1 K/mcL (0.0-0.6); Eosinophils % 1.1 %; Hematocrit 38.9 % (35.3-44.9); Hemoglobin 12.5 g/dL (11.5-15.4); Immature Granulocytes % 0.4 % (0-4); Mean Corpuscular HGB Conc 32.1 g/dL (31.6-35.5); Mean Corpuscular Hemoglobin 29.8 pg (28.0-33.3); Mean Corpuscular Volume 92.8 fL (83.0-100.0); Monocytes # 0.9 K/mcL (0.0-1.3); Monocytes % 8.8 %; Neutrophils # 7.2 K/mcL (1.6-8.9); Platelet Count 331 K/mcL (140-400); Red Blood Count 4.19 M/mcL (3.82-4.97); Red Cell Distribution Width 12.5 % (11.5-14.5); Segmented Neutrophils % 69.8 %; White Blood Count 10.4 K/mcL (4.3-11.1)
[2020-08-18 20:14] LABS: Acetaminophen < 10 mcg/mL (10-20); BUN/Creatinine Ratio 15 (6-26); Blood Urea Nitrogen 16 mg/dL (8-23); Calcium 9.8 mg/dL (8.6-10.3); Carbon Dioxide 25 mEq/L (23-29); Chloride 105 mEq/L (98-107); Ethanol < 10 mg/dL (Less than 10); Glucose 97 mg/dL (70-105); Osmolality,Calculated 289 (280-300); Potassium 4.2 mEq/L (3.5-5.1); Salicylate < 2.5 mg/dL (15.0-30.0); Sodium 139 mEq/L (136-145); eGFR For African Americans > 60 (> 60); eGFR For Non-African Americans 51 (> 60)
[2020-08-18] MEDS ORDERED: *HR* LORazepam 2 MG/ML VIAL IM PRN (21:38)
[2020-08-18] MEDS ORDERED: haloperidoL 5 MG TABLET PO PRN (21:38)
[2020-08-18] MEDS ORDERED: *HR* LORazepam 1 MG TABLET PO PRN (21:38)
[2020-08-18] MEDS ORDERED: MOM Conc 10 ML UD.LIQ PO PRN (21:38)
[2020-08-18] MEDS ORDERED: hydrOXYzine pamoate 25 MG CAPSULE PO PRN (21:38)
[2020-08-18] MEDS ORDERED: Haloperidol Lactate 5 MG/ML VIAL IM PRN (21:38)
[2020-08-18] MEDS: traZODone 50 MG TABLET PO PRN (23:19)
[2020-08-18] MEDS: hydrOXYzine pamoate 25 MG CAPSULE PO PRN (23:20)
[2020-08-18 23:58] LABS: Thyroid Stimulating Hormone 0.299 mcIU/mL (0.340-5.600)
[2020-08-19] MEDS ORDERED: traZODone 50 MG TABLET PO PRN (14:16)
[2020-08-19] MEDS: Nicotine 21 MG PATCH.TD24 TD SCH (15:22)
[2020-08-19] MEDS: hydrOXYzine pamoate 25 MG CAPSULE PO PRN ×2 (15:23→20:05)
[2020-08-19] MEDS: Gabapentin 400 MG CAPSULE PO SCH ×2 (15:23→20:05)
[2020-08-19] MEDS: Ketoconazole 2% CRM 15 GM TUBE TP SCH ×2 (15:25→20:06)
[2020-08-19] MEDS: Lurasidone 20 MG TABLET PO SCH (17:48)
[2020-08-19] MEDS: traZODone 50 MG TABLET PO PRN (20:05)
[2020-08-19] MEDS: carBAMazepine 200 MG TABLET PO SCH (20:05)
[2020-08-19] MEDS: Ibuprofen 400 MG TABLET PO PRN (20:05)
[2020-08-20] MEDS: Ibuprofen 400 MG TABLET PO PRN ×3 (02:32→20:56)
[2020-08-20] MEDS: Cholecalciferol (D-3) 1,000 UNIT (25MCG) TABLET PO SCH (08:07)
[2020-08-20] MEDS: Gabapentin 400 MG CAPSULE PO SCH ×3 (08:07→20:56)
[2020-08-20] MEDS: carBAMazepine 200 MG TABLET PO SCH ×2 (08:08→20:56)
[2020-08-20] MEDS: Ascorbic Acid 500 MG TABLET PO SCH (08:08)
[2020-08-20] MEDS: lamoTRIgine 100 MG TABLET PO SCH (08:09)
[2020-08-20] MEDS: Nicotine 21 MG PATCH.TD24 TD SCH (08:10)
[2020-08-20] MEDS ORDERED: NON-FORMULARY MEDICATION 1 EACH EACH (Duloxetine Hcl [Cymbalta] 60 MG) PO SCH (09:00)
[2020-08-20] MEDS: Ketoconazole 2% CRM 15 GM TUBE TP SCH ×2 (10:20→21:56)
[2020-08-20] MEDS: hydrOXYzine pamoate 25 MG CAPSULE PO PRN ×2 (14:17→20:56)
[2020-08-20] MEDS: Lurasidone 20 MG TABLET PO SCH (17:12)
[2020-08-21] MEDS: Gabapentin 400 MG CAPSULE PO SCH ×3 (08:28→20:58)
[2020-08-21] MEDS: Cholecalciferol (D-3) 1,000 UNIT (25MCG) TABLET PO SCH (08:28)
[2020-08-21] MEDS: Ascorbic Acid 500 MG TABLET PO SCH (08:29)
[2020-08-21] MEDS: lamoTRIgine 100 MG TABLET PO SCH (08:29)
[2020-08-21] MEDS: carBAMazepine 200 MG TABLET PO SCH ×2 (08:30→20:58)
[2020-08-21] MEDS: Nicotine 21 MG PATCH.TD24 TD SCH (08:31)
[2020-08-21] MEDS: Ketoconazole 2% CRM 15 GM TUBE TP SCH ×2 (08:40→20:59)
[2020-08-21 08:51] LABS: Hemoglobin 11.5 g/dL (11.5-15.4); Mean Corpuscular HGB Conc 31.9 g/dL (31.6-35.5); Mean Corpuscular Hemoglobin 30.3 pg (28.0-33.3); Mean Corpuscular Volume 94.7 fL (83.0-100.0); Mean Platelet Volume 9.4 fL (9.4-12.4); Platelet Count 282 K/mcL (140-400); Red Cell Distribution Width 12.6 % (11.5-14.5); White Blood Count 5.6 K/mcL (4.3-11.1)
[2020-08-21 09:09] LABS: BUN/Creatinine Ratio 15 (6-26); Blood Urea Nitrogen 13 mg/dL (8-23); Calcium 9.3 mg/dL (8.6-10.3); Carbamazepine (Tegretol) 6 mcg/mL (4-12); Carbon Dioxide 23 mEq/L (23-29); Chloride 104 mEq/L (98-107); Glucose 105 mg/dL (70-105); Osmolality,Calculated 280 (280-300); Potassium 4.1 mEq/L (3.5-5.1); Sodium 135 mEq/L (136-145); eGFR For African Americans > 60 (> 60); eGFR For Non-African Americans > 60 (> 60)
[2020-08-21] MEDS: Ibuprofen 400 MG TABLET PO PRN ×2 (09:16→16:22)
[2020-08-21] MEDS: hydrOXYzine pamoate 25 MG CAPSULE PO PRN ×3 (09:16→20:58)
[2020-08-21 16:22] LABS: Amorphous Sediment,Urine Few per hpf (None-Few); Bacteria,Urine Few per hpf (None-Few); Hyaline Casts,Urine Moderate per lpf (None Seen); Mucus,Urine Few per lpf (None-Few); Squamous Epithelial Cell,Urine Many per hpf (None-Few); WBC,Urine 15-30 per hpf (0-3)
[2020-08-21 16:27] LABS: Bilirubin,Urine Negative (Negative); Clarity,Urine Cloudy (Clear); Color,Urine Yellow (Yellow); Glucose,Urine (UA) Normal (Normal); Ketones,Urine Negative (Negative); Specific Gravity,Urine 1.014 (1.010-1.025)
[2020-08-21 16:28] LABS: Blood,Urine Negative (Negative); Leukocyte Esterase,Urine Large (Negative); Nitrite,Urine Negative (Negative); PH,Urine 5.5 pH Units (5.0-8.0); Protein,Urine Trace mg/dL (Neg-Trace); Urobilinogen,Urine Normal (Normal)
[2020-08-21] MEDS: risperiDONE 1 MG TABLET PO SCH (20:58)
[2020-08-21] MEDS: Mag Hydrox/Al Hydrox/Simeth 30 ML UDC PO PRN (21:56)
[2020-08-22] MEDS: Cholecalciferol (D-3) 1,000 UNIT (25MCG) TABLET PO SCH (08:40)
[2020-08-22] MEDS: carBAMazepine 200 MG TABLET PO SCH ×2 (08:40→21:56)
[2020-08-22] MEDS: lamoTRIgine 100 MG TABLET PO SCH (08:41)
[2020-08-22] MEDS: Gabapentin 400 MG CAPSULE PO SCH ×3 (08:42→21:56)
[2020-08-22] MEDS: Ascorbic Acid 500 MG TABLET PO SCH (08:42)
[2020-08-22] MEDS: Nicotine 21 MG PATCH.TD24 TD SCH (08:44)
[2020-08-22] MEDS: Ketoconazole 2% CRM 15 GM TUBE TP SCH ×2 (08:45→22:00)
[2020-08-22 11:04] LABS: Triiodothyronine (T3) Free 2.94 pg/mL (2.50-3.90)
[2020-08-22 11:08] LABS: Triiodothyronine (T3) Total 1.19 ng/mL (0.87-1.78)
[2020-08-22] MEDS: Sulfamethoxazole/Trimeth DS 1 EACH TABLET PO SCH ×2 (12:08→21:56)
[2020-08-22] MEDS: Nystatin POWDER 30 GM BOTTLE TP SCH ×2 (12:09→22:01)
[2020-08-22] MEDS: Mag Hydrox/Al Hydrox/Simeth 30 ML UDC PO PRN (13:58)
[2020-08-22 20:38] LABS: Basophils % 0.5 %; Eosinophils # 0.2 K/mcL (0.0-0.6); Eosinophils % 2.9 %; Hematocrit 34.6 % (35.3-44.9); Hemoglobin 11.2 g/dL (11.5-15.4); Immature Granulocytes % 0.3 % (0-4); Lymphocytes # 1.8 K/mcL (0.6-4.6); Lymphocytes % 27.7 %; Mean Corpuscular HGB Conc 32.4 g/dL (31.6-35.5); Mean Corpuscular Hemoglobin 30.5 pg (28.0-33.3); Mean Corpuscular Volume 94.3 fL (83.0-100.0); Mean Platelet Volume 9.2 fL (9.4-12.4); Monocytes # 0.6 K/mcL (0.0-1.3); Monocytes % 8.7 %; Platelet Count 285 K/mcL (140-400); Red Blood Count 3.67 M/mcL (3.82-4.97); Red Cell Distribution Width 12.3 % (11.5-14.5); Segmented Neutrophils % 59.9 %; White Blood Count 6.6 K/mcL (4.3-11.1)
[2020-08-22 20:56] LABS: Alanine Aminotransferase 10 Units/L (7-52); Albumin 4.2 g/dL (3.5-5.7); Albumin/Globulin Ratio 1.5 (1.1-2.2); Alkaline Phosphatase 116 Units/L (34-104); Aspartate Amino Transferase 16 Units/L (13-39); BUN/Creatinine Ratio 11 (6-26); Bilirubin,Total 0.5 mg/dL (0.3-1.0); Blood Urea Nitrogen 9 mg/dL (8-23); Calcium 9.5 mg/dL (8.6-10.3); Carbon Dioxide 26 mEq/L (23-29); Chloride 101 mEq/L (98-107); Globulin 2.8 g/dL (2.4-3.5); Glucose 109 mg/dL (70-105); Osmolality,Calculated 275 (280-300); Sodium 133 mEq/L (136-145); eGFR For African Americans > 60 (> 60); eGFR For Non-African Americans > 60 (> 60)
[2020-08-22] MEDS: risperiDONE 1 MG TABLET PO SCH (21:55)
[2020-08-23 00:36] VITALS: BP 136/91
== END 2020-08-23 01:52 | disposition home or self-care (01) | DRG 885 ==
LOC: EMEROOARM 17:52 → 1ANU 21:36
PROVIDERS: ADMIT Psychiatry & Neurology Forensic Psychiatry; ATTEND Psychiatry & Neurology Forensic Psychiatry

== ENCOUNTER 2020-08-23 01:16 | Inpatient (IN) ==
[2020-08-23] MEDS ORDERED: 0.9 % Sodium Chloride 1,000 ML IVC SCH (03:45)
[2020-08-23] MEDS ORDERED: Naloxone 0.4 MG/ML INJ IVP PRN (04:09)
[2020-08-23] MEDS ORDERED: Acetaminophen 325 MG TABLET PO PRN (04:09)
[2020-08-23 04:55] LABS: Basophils % 0.6 %; Eosinophils # 0.2 K/mcL (0.0-0.6); Eosinophils % 3.3 %; Hematocrit 32.6 % (35.3-44.9); Hemoglobin 10.7 g/dL (11.5-15.4); Immature Granulocytes % 0.2 % (0-4); Lymphocytes # 1.7 K/mcL (0.6-4.6); Lymphocytes % 26.5 %; Mean Corpuscular HGB Conc 32.8 g/dL (31.6-35.5); Mean Corpuscular Hemoglobin 30.8 pg (28.0-33.3); Mean Corpuscular Volume 93.9 fL (83.0-100.0); Mean Platelet Volume 9.4 fL (9.4-12.4); Monocytes # 0.6 K/mcL (0.0-1.3); Monocytes % 9.7 %; Neutrophils # 3.8 K/mcL (1.6-8.9); Platelet Count 266 K/mcL (140-400); Red Blood Count 3.47 M/mcL (3.82-4.97); Red Cell Distribution Width 12.3 % (11.5-14.5); Segmented Neutrophils % 59.7 %; White Blood Count 6.3 K/mcL (4.3-11.1)
[2020-08-23 05:14] LABS: Alanine Aminotransferase 7 Units/L (7-52); Albumin 3.8 g/dL (3.5-5.7); Albumin/Globulin Ratio 1.5 (1.1-2.2); Alkaline Phosphatase 111 Units/L (34-104); Aspartate Amino Transferase 15 Units/L (13-39); BUN/Creatinine Ratio 10 (6-26); Bilirubin,Total 0.4 mg/dL (0.3-1.0); Blood Urea Nitrogen 8 mg/dL (8-23); Calcium 9.4 mg/dL (8.6-10.3); Carbon Dioxide 25 mEq/L (23-29); Chloride 101 mEq/L (98-107); Globulin 2.6 g/dL (2.4-3.5); Glucose 104 mg/dL (70-105); Osmolality,Calculated 275 (280-300); Potassium 4.2 mEq/L (3.5-5.1); Sodium 133 mEq/L (136-145); Total Protein 6.4 g/dL (6.4-8.9); eGFR For African Americans > 60 (> 60); eGFR For Non-African Americans > 60 (> 60)
[2020-08-23 05:50] LABS: Thyroid Stimulating Hormone 0.102 mcIU/mL (0.340-5.600)
[2020-08-23] MEDS: *HR* Heparin 5,000 UNIT/ML VIAL SQ SCH ×3 (06:06→21:45)
[2020-08-23] MEDS: 0.9 % Sodium Chloride 1,000 ML IVC SCH ×2 (06:06→21:38)
[2020-08-23] MEDS: Piperacillin/Tazobactam 3.375 GM in 0.9 % Sodium Chloride Mini Bag 100 ML IVPB SCH ×2 (08:14→15:48)
[2020-08-23] MEDS: Cholecalciferol (D-3) 1,000 UNIT (25MCG) TABLET PO SCH (08:16)
[2020-08-23] MEDS: lamoTRIgine 100 MG TABLET PO SCH (08:16)
[2020-08-23] MEDS: Gabapentin 400 MG CAPSULE PO SCH ×3 (08:16→21:34)
[2020-08-23] MEDS: carBAMazepine 200 MG TABLET PO SCH ×2 (08:16→21:36)
[2020-08-23] MEDS: Ascorbic Acid 500 MG TABLET PO SCH (08:16)
[2020-08-23] MEDS: Nicotine 21 MG PATCH.TD24 TD SCH (08:17)
[2020-08-23] MEDS: Nystatin POWDER 30 GM BOTTLE TP SCH ×2 (09:29→21:37)
[2020-08-23] MEDS: Ketoconazole 2% CRM 15 GM TUBE TP SCH ×2 (09:29→21:38)
[2020-08-23] MEDS: risperiDONE 1 MG TABLET PO SCH (21:33)
[2020-08-23] MEDS: traZODone 50 MG TABLET PO SCH (21:35)
[2020-08-24] MEDS: Piperacillin/Tazobactam 3.375 GM in 0.9 % Sodium Chloride Mini Bag 100 ML IVPB SCH ×2 (00:43→07:52)
[2020-08-24 02:52] LABS: Hematocrit 28.1 % (35.3-44.9); Hemoglobin 9.2 g/dL (11.5-15.4); Mean Corpuscular HGB Conc 32.7 g/dL (31.6-35.5); Mean Corpuscular Hemoglobin 30.3 pg (28.0-33.3); Mean Corpuscular Volume 92.4 fL (83.0-100.0); Mean Platelet Volume 9.5 fL (9.4-12.4); Platelet Count 233 K/mcL (140-400); Red Blood Count 3.04 M/mcL (3.82-4.97); Red Cell Distribution Width 12.4 % (11.5-14.5); White Blood Count 6.5 K/mcL (4.3-11.1)
[2020-08-24 02:59] LABS: BUN/Creatinine Ratio 11 (6-26); Blood Urea Nitrogen 8 mg/dL (8-23); Calcium 8.1 mg/dL (8.6-10.3); Carbon Dioxide 23 mEq/L (23-29); Chloride 102 mEq/L (98-107); Chol/HDL Ratio 2.2 (0-4.9); Cholesterol 119 mg/dL (< 200); Glucose 109 mg/dL (70-105); HDL Cholesterol 54 mg/dL (40-59); LDL Cholesterol,Calculated 44 mg/dL (< 100); Magnesium 1.8 mg/dL (1.6-2.6); Osmolality,Calculated 271 (280-300); Phosphorous 3.1 mg/dL (2.7-4.5); Potassium 3.7 mEq/L (3.5-5.1); Sodium 131 mEq/L (136-145); Triglycerides 106 mg/dL (< 150); eGFR For African Americans > 60 (> 60); eGFR For Non-African Americans > 60 (> 60)
[2020-08-24] MEDS: *HR* Heparin 5,000 UNIT/ML VIAL SQ SCH ×3 (06:34→22:18)
[2020-08-24] MEDS: 0.9 % Sodium Chloride 1,000 ML IVC SCH ×2 (07:52→22:26)
[2020-08-24] MEDS: Cholecalciferol (D-3) 1,000 UNIT (25MCG) TABLET PO SCH (07:53)
[2020-08-24] MEDS: Ascorbic Acid 500 MG TABLET PO SCH (07:53)
[2020-08-24] MEDS: lamoTRIgine 100 MG TABLET PO SCH (07:53)
[2020-08-24] MEDS: Nicotine 21 MG PATCH.TD24 TD SCH (07:54)
[2020-08-24] MEDS: carBAMazepine 200 MG TABLET PO SCH ×2 (07:54→22:17)
[2020-08-24] MEDS: Gabapentin 400 MG CAPSULE PO SCH ×3 (07:54→22:16)
[2020-08-24] MEDS: Nystatin POWDER 30 GM BOTTLE TP SCH ×2 (07:55→22:17)
[2020-08-24] MEDS: Ketoconazole 2% CRM 15 GM TUBE TP SCH ×2 (07:55→22:17)
[2020-08-24] MEDS ORDERED: risperiDONE 1 MG TABLET PO ONE (12:34)
[2020-08-24] MEDS ORDERED: hydrOXYzine pamoate 25 MG CAPSULE PO ONE (12:35)
[2020-08-24 13:16] LABS: BUN/Creatinine Ratio 9 (6-26); Blood Urea Nitrogen 7 mg/dL (8-23); Calcium 8.7 mg/dL (8.6-10.3); Carbon Dioxide 25 mEq/L (23-29); Chloride 97 mEq/L (98-107); Glucose 98 mg/dL (70-105); Osmolality,Calculated 266 (280-300); Potassium 3.9 mEq/L (3.5-5.1); Sodium 129 mEq/L (136-145); eGFR For African Americans > 60 (> 60); eGFR For Non-African Americans > 60 (> 60)
[2020-08-24] MEDS: traZODone 50 MG TABLET PO SCH (22:17)
[2020-08-24] MEDS: risperiDONE 1 MG TABLET PO SCH (22:17)
[2020-08-24] MEDS: Amoxicillin 500 MG CAPSULE PO SCH (22:17)
[2020-08-25 05:10] LABS: Hemoglobin 9.8 g/dL (11.5-15.4); Mean Corpuscular HGB Conc 32.7 g/dL (31.6-35.5); Mean Corpuscular Hemoglobin 29.6 pg (28.0-33.3); Mean Corpuscular Volume 90.6 fL (83.0-100.0); Mean Platelet Volume 9.4 fL (9.4-12.4); Platelet Count 247 K/mcL (140-400); Red Blood Count 3.31 M/mcL (3.82-4.97); Red Cell Distribution Width 12.2 % (11.5-14.5); White Blood Count 6.9 K/mcL (4.3-11.1)
[2020-08-25 05:21] LABS: BUN/Creatinine Ratio 10 (6-26); Blood Urea Nitrogen 6 mg/dL (8-23); Calcium 8.5 mg/dL (8.6-10.3); Carbon Dioxide 23 mEq/L (23-29); Chloride 102 mEq/L (98-107); Glucose 88 mg/dL (70-105); Osmolality,Calculated 269 (280-300); Sodium 131 mEq/L (136-145); eGFR For African Americans > 60 (> 60); eGFR For Non-African Americans > 60 (> 60)
[2020-08-25] MEDS: *HR* Heparin 5,000 UNIT/ML VIAL SQ SCH ×2 (06:30→12:37)
[2020-08-25] MEDS: lamoTRIgine 100 MG TABLET PO SCH (09:22)
[2020-08-25] MEDS: Amoxicillin 500 MG CAPSULE PO SCH (09:23)
[2020-08-25] MEDS: Ascorbic Acid 500 MG TABLET PO SCH (09:24)
[2020-08-25] MEDS: Gabapentin 400 MG CAPSULE PO SCH (09:24)
[2020-08-25] MEDS: Cholecalciferol (D-3) 1,000 UNIT (25MCG) TABLET PO SCH (09:25)
[2020-08-25] MEDS: Nicotine 21 MG PATCH.TD24 TD SCH (09:25)
[2020-08-25] MEDS: 0.9 % Sodium Chloride 1,000 ML IVC SCH (09:28)
[2020-08-25] MEDS: Nystatin POWDER 30 GM BOTTLE TP SCH (09:28)
[2020-08-25] MEDS: carBAMazepine 200 MG TABLET PO SCH (09:28)
[2020-08-25] MEDS: Ketoconazole 2% CRM 15 GM TUBE TP SCH (09:28)
[2020-08-25 12:09] VITALS: BP 120/72
[2020-08-25 12:33] LABS: BUN/Creatinine Ratio 8 (6-26); Blood Urea Nitrogen 6 mg/dL (8-23); Calcium 8.6 mg/dL (8.6-10.3); Carbon Dioxide 25 mEq/L (23-29); Chloride 103 mEq/L (98-107); Glucose 109 mg/dL (70-105); Osmolality,Calculated 274 (280-300); Potassium 4.5 mEq/L (3.5-5.1); Sodium 133 mEq/L (136-145); eGFR For African Americans > 60 (> 60); eGFR For Non-African Americans > 60 (> 60)
== END 2020-08-25 14:40 | DRG 689 ==
LOC: 3BNU → SUATTDRO 03:19
PROVIDERS: ADMIT Internal Medicine; ATTEND Nurse Practitioner Adult Health

== ENCOUNTER 2020-08-25 14:50 | Inpatient (IN) ==
[2020-08-25] MEDS ORDERED: MOM Conc 10 ML UD.LIQ PO PRN (15:29)
[2020-08-25] MEDS ORDERED: Ibuprofen 400 MG TABLET PO PRN (15:29)
[2020-08-25] MEDS ORDERED: Mag Hydrox/Al Hydrox/Simeth 30 ML UDC PO PRN (15:29)
[2020-08-25] MEDS ORDERED: *HR* LORazepam 2 MG/ML VIAL IM PRN (15:29)
[2020-08-25] MEDS ORDERED: *HR* LORazepam 1 MG TABLET PO PRN (15:29)
[2020-08-25] MEDS ORDERED: Ziprasidone 20 MG in Water for inj. (sterile) 1 ML IM PRN (15:38)
[2020-08-25] MEDS: Ziprasidone 20 MG CAPSULE PO PRN (18:43)
[2020-08-25] MEDS: Amoxicillin 500 MG CAPSULE PO SCH (21:07)
[2020-08-25] MEDS: carBAMazepine 200 MG TABLET PO SCH (21:07)
[2020-08-25] MEDS: Gabapentin 400 MG CAPSULE PO SCH (21:07)
[2020-08-25] MEDS: lamoTRIgine 100 MG TABLET PO SCH (21:07)
[2020-08-25] MEDS: traZODone 50 MG TABLET PO SCH (21:07)
[2020-08-25] MEDS: risperiDONE 1 MG TABLET PO SCH ×2 (21:08→21:21)
[2020-08-25] MEDS: Ketoconazole 2% CRM 15 GM TUBE TP SCH (21:10)
[2020-08-26] MEDS: hydrOXYzine pamoate 25 MG CAPSULE PO PRN (02:43)
[2020-08-26] MEDS: lamoTRIgine 100 MG TABLET PO SCH ×2 (08:51→20:42)
[2020-08-26] MEDS: Ascorbic Acid 500 MG TABLET PO SCH (08:51)
[2020-08-26] MEDS: carBAMazepine 200 MG TABLET PO SCH (08:51)
[2020-08-26] MEDS: Amoxicillin 500 MG CAPSULE PO SCH ×2 (08:51→20:42)
[2020-08-26] MEDS: Gabapentin 400 MG CAPSULE PO SCH (08:51)
[2020-08-26] MEDS: Cholecalciferol (D-3) 1,000 UNIT (25MCG) TABLET PO SCH (08:51)
[2020-08-26] MEDS: Nicotine 21 MG PATCH.TD24 TD SCH (09:14)
[2020-08-26] MEDS: Ketoconazole 2% CRM 15 GM TUBE TP SCH ×2 (09:14→20:41)
[2020-08-26] MEDS: Ziprasidone 20 MG CAPSULE PO PRN (12:40)
[2020-08-26] MEDS ORDERED: Ziprasidone 10 MG in Water for inj. (sterile) 0.5 ML IM PRN (12:50)
[2020-08-26] MEDS ORDERED: Ziprasidone 20 MG CAPSULE PO PRN (12:51)
[2020-08-26] MEDS: Gabapentin 300 MG CAPSULE PO SCH ×2 (14:51→20:42)
[2020-08-26] MEDS ORDERED: Ziprasidone 20 MG in Water for inj. (sterile) 1 ML IM PRN (15:38)
[2020-08-26] MEDS: traZODone 50 MG TABLET PO SCH (20:42)
[2020-08-26] MEDS ORDERED: QUEtiapine Fumarate 100 MG TABLET PO SCH (21:00)
[2020-08-27] MEDS: Amoxicillin 500 MG CAPSULE PO SCH ×2 (08:19→20:41)
[2020-08-27] MEDS ORDERED: QUEtiapine Fumarate 100 MG TABLET PO PRN (08:19)
[2020-08-27] MEDS: lamoTRIgine 100 MG TABLET PO SCH ×2 (08:20→20:41)
[2020-08-27] MEDS: Nicotine 21 MG PATCH.TD24 TD SCH (08:21)
[2020-08-27] MEDS: Gabapentin 300 MG CAPSULE PO SCH ×3 (08:21→20:40)
[2020-08-27] MEDS: Ascorbic Acid 500 MG TABLET PO SCH (08:22)
[2020-08-27] MEDS: Cholecalciferol (D-3) 1,000 UNIT (25MCG) TABLET PO SCH (08:23)
[2020-08-27] MEDS: Ketoconazole 2% CRM 15 GM TUBE TP SCH ×2 (08:23→20:44)
[2020-08-27] MEDS: hydrOXYzine pamoate 25 MG CAPSULE PO PRN (08:25)
[2020-08-27] MEDS ORDERED: Ziprasidone 20 MG CAPSULE PO SCH (14:00)
[2020-08-27] MEDS: traZODone 50 MG TABLET PO SCH (20:41)
[2020-08-28] MEDS: Nicotine 21 MG PATCH.TD24 TD SCH (09:08)
[2020-08-28] MEDS: Amoxicillin 500 MG CAPSULE PO SCH (09:09)
[2020-08-28] MEDS: Cholecalciferol (D-3) 1,000 UNIT (25MCG) TABLET PO SCH (09:10)
[2020-08-28] MEDS: Gabapentin 300 MG CAPSULE PO SCH (09:10)
[2020-08-28] MEDS: Ascorbic Acid 500 MG TABLET PO SCH (09:10)
[2020-08-28] MEDS: lamoTRIgine 100 MG TABLET PO SCH (09:10)
[2020-08-28 09:13] VITALS: BP 104/65
[2020-08-28] MEDS: Ketoconazole 2% CRM 15 GM TUBE TP SCH (09:21)
== END 2020-08-28 12:35 | disposition home or self-care (01) | DRG 885 ==
LOC: 1ANU 14:50
PROVIDERS: ADMIT Psychiatry & Neurology Psychiatry; ATTEND Psychiatry & Neurology Psychiatry

== ENCOUNTER 2020-09-13 19:05 | Inpatient (IN) ==
[2020-09-13 21:46] LABS: Basophils # 0.1 K/mcL (0.0-0.2); Basophils % 0.5 %; Eosinophils # 0.3 K/mcL (0.0-0.6); Eosinophils % 3.2 %; Hematocrit 38.6 % (35.3-44.9); Hemoglobin 12.2 g/dL (11.5-15.4); Immature Granulocytes % 0.1 % (0-4); Lymphocytes # 2.4 K/mcL (0.6-4.6); Lymphocytes % 26.1 %; Mean Corpuscular HGB Conc 31.6 g/dL (31.6-35.5); Mean Corpuscular Hemoglobin 29.5 pg (28.0-33.3); Mean Corpuscular Volume 93.5 fL (83.0-100.0); Mean Platelet Volume 9.3 fL (9.4-12.4); Monocytes # 0.8 K/mcL (0.0-1.3); Monocytes % 8.6 %; Neutrophils # 5.6 K/mcL (1.6-8.9); Nucleated Red Blood Cells 0.3 /100 WBC (0); Platelet Count 271 K/mcL (140-400); Red Blood Count 4.13 M/mcL (3.82-4.97); Red Cell Distribution Width 13.2 % (11.5-14.5); Segmented Neutrophils % 61.5 %; White Blood Count 9.1 K/mcL (4.3-11.1)
[2020-09-13 21:57] LABS: BUN/Creatinine Ratio 13 (6-26); Blood Urea Nitrogen 9 mg/dL (8-23); Calcium 9.6 mg/dL (8.6-10.3); Carbon Dioxide 26 mEq/L (23-29); Chloride 106 mEq/L (98-107); Glucose 98 mg/dL (70-105); Osmolality,Calculated 285 (280-300); Sodium 138 mEq/L (136-145); Troponin I < 0.03 ng/mL (< 0.04); eGFR For African Americans > 60 (> 60); eGFR For Non-African Americans > 60 (> 60)
[2020-09-14] MEDS ORDERED: Naloxone 0.4 MG/ML INJ IVP PRN (00:25)
[2020-09-14] MEDS ORDERED: Ondansetron 4 MG/2 ML VIAL IVP PRN (00:25)
[2020-09-14] MEDS ORDERED: Perflutren Lipid Microsphere 1.3 ML in 0.9 % Sodium Chloride 8.7 ML IVP PRN (00:37)
[2020-09-14] MEDS ORDERED: Isovue-370 500 ML BOTTLE IVP ONE ×3 (01:23→12:05)
[2020-09-14 05:09] LABS: Basophils # 0.1 K/mcL (0.0-0.2); Eosinophils # 0.3 K/mcL (0.0-0.6); Eosinophils % 3.6 %; Hemoglobin 11.2 g/dL (11.5-15.4); Immature Granulocytes % 0.1 % (0-4); Lymphocytes # 2.1 K/mcL (0.6-4.6); Lymphocytes % 30.4 %; Mean Corpuscular HGB Conc 31.1 g/dL (31.6-35.5); Mean Corpuscular Hemoglobin 29.3 pg (28.0-33.3); Mean Corpuscular Volume 94.2 fL (83.0-100.0); Mean Platelet Volume 9.3 fL (9.4-12.4); Monocytes # 0.7 K/mcL (0.0-1.3); Monocytes % 9.9 %; Neutrophils # 3.8 K/mcL (1.6-8.9); Platelet Count 262 K/mcL (140-400); Red Blood Count 3.82 M/mcL (3.82-4.97); Red Cell Distribution Width 13.3 % (11.5-14.5); White Blood Count 6.9 K/mcL (4.3-11.1)
[2020-09-14 05:29] LABS: INR 1.1; Prothrombin Time 12.6 Seconds (9.4-12.1)
[2020-09-14 05:32] LABS: Alanine Aminotransferase 8 Units/L (7-52); Albumin 3.6 g/dL (3.5-5.7); Albumin/Globulin Ratio 1.3 (1.1-2.2); Alkaline Phosphatase 94 Units/L (34-104); Aspartate Amino Transferase 13 Units/L (13-39); BUN/Creatinine Ratio 13 (6-26); Bilirubin,Total 0.8 mg/dL (0.3-1.0); Blood Urea Nitrogen 10 mg/dL (8-23); Carbon Dioxide 27 mEq/L (23-29); Chloride 107 mEq/L (98-107); Chol/HDL Ratio 2.7 (0-4.9); Cholesterol 150 mg/dL (< 200); Globulin 2.7 g/dL (2.4-3.5); Glucose 101 mg/dL (70-105); HDL Cholesterol 56 mg/dL (40-59); LDL Cholesterol,Calculated 63 mg/dL (< 100); Magnesium 2.1 mg/dL (1.6-2.6); Osmolality,Calculated 289 (280-300); Potassium 4.2 mEq/L (3.5-5.1); Sodium 140 mEq/L (136-145); Total Protein 6.3 g/dL (6.4-8.9); Triglycerides 154 mg/dL (< 150); Troponin I < 0.03 ng/mL (< 0.04); eGFR For African Americans > 60 (> 60); eGFR For Non-African Americans > 60 (> 60)
[2020-09-14 05:47] LABS: Folate 5.5 ng/mL (3.0-16.0)
[2020-09-14] MEDS ORDERED: 0.9 % Sodium Chloride 1,000 ML IVC ONE (08:48)
[2020-09-14] MEDS: Aspirin Enteric Coated 81 MG Tablet PO SCH (09:38)
[2020-09-14] MEDS ORDERED: Cyanocobalamin (B-12) 1,000 MCG TABLET PO SCH (11:15)
[2020-09-14] MEDS ORDERED: *HR* Promethazine 25 MG/ML VIAL IVP PRN (12:37)
[2020-09-14] MEDS: Ziprasidone 20 MG CAPSULE PO SCH (12:49)
[2020-09-14] MEDS ORDERED: Cyanocobalamin (B-12) 1,000 MCG/ML VIAL SQ ONE (13:04)
[2020-09-14 15:42] LABS: Bilirubin,Urine Negative (Negative); Blood,Urine Negative (Negative); Clarity,Urine Turbid (Clear); Color,Urine Yellow (Yellow); Glucose,Urine (UA) Normal (Normal); Ketones,Urine Negative (Negative); Leukocyte Esterase,Urine Moderate (Negative); Mucus,Urine Few per lpf (None-Few); Nitrite,Urine Negative (Negative); Protein,Urine Negative (Neg-Trace); RBC,Urine 0-3 per hpf (0-3); Specific Gravity,Urine 1.015 (1.010-1.025); Squamous Epithelial Cell,Urine Moderate per hpf (None-Few); Urobilinogen,Urine Normal (Normal)
[2020-09-14] MEDS: traZODone 50 MG TABLET PO SCH (20:45)
[2020-09-14] MEDS: lamoTRIgine 100 MG TABLET PO SCH (20:45)
[2020-09-14] MEDS ORDERED: NON-FORMULARY MEDICATION 1 EACH EACH (Trazodone Hcl 100 MG) PO SCH (21:00)
[2020-09-14] MEDS: Gabapentin 400 MG CAPSULE PO SCH (23:31)
[2020-09-14] MEDS: Piperacillin/Tazobactam 3.375 GM in 0.9 % Sodium Chloride Mini Bag 100 ML IVPB SCH (23:32)
[2020-09-14] MEDS: Nicotine 21 MG PATCH.TD24 TD SCH (23:32)
[2020-09-15 02:49] LABS: Basophils # 0.1 K/mcL (0.0-0.2); Basophils % 0.8 %; Eosinophils # 0.2 K/mcL (0.0-0.6); Eosinophils % 3.3 %; Hemoglobin 10.9 g/dL (11.5-15.4); Immature Granulocytes % 0.1 % (0-4); Lymphocytes # 2.5 K/mcL (0.6-4.6); Lymphocytes % 34.7 %; Mean Corpuscular HGB Conc 32.1 g/dL (31.6-35.5); Mean Corpuscular Hemoglobin 30.4 pg (28.0-33.3); Mean Corpuscular Volume 94.7 fL (83.0-100.0); Mean Platelet Volume 9.4 fL (9.4-12.4); Monocytes # 0.8 K/mcL (0.0-1.3); Monocytes % 10.2 %; Neutrophils # 3.7 K/mcL (1.6-8.9); Platelet Count 240 K/mcL (140-400); Red Blood Count 3.59 M/mcL (3.82-4.97); Red Cell Distribution Width 13.4 % (11.5-14.5); Segmented Neutrophils % 50.9 %; White Blood Count 7.3 K/mcL (4.3-11.1)
[2020-09-15 03:09] LABS: BUN/Creatinine Ratio 13 (6-26); Blood Urea Nitrogen 10 mg/dL (8-23); Calcium 8.9 mg/dL (8.6-10.3); Carbon Dioxide 25 mEq/L (23-29); Chloride 108 mEq/L (98-107); Glucose 108 mg/dL (70-105); Osmolality,Calculated 286 (280-300); Potassium 3.6 mEq/L (3.5-5.1); Sodium 138 mEq/L (136-145); eGFR For African Americans > 60 (> 60); eGFR For Non-African Americans > 60 (> 60)
[2020-09-15] MEDS ORDERED: Ketorolac 15 MG/ML VIAL IVP ONE (10:02)
[2020-09-15] MEDS ORDERED: Ondansetron 4 MG/2 ML VIAL IVP ONE (10:02)
[2020-09-15] MEDS: Gabapentin 400 MG CAPSULE PO SCH ×3 (10:03→21:50)
[2020-09-15] MEDS: Nicotine 21 MG PATCH.TD24 TD SCH (10:03)
[2020-09-15] MEDS: lamoTRIgine 100 MG TABLET PO SCH ×2 (10:04→21:50)
[2020-09-15] MEDS: Aspirin Enteric Coated 81 MG Tablet PO SCH (10:05)
[2020-09-15] MEDS ORDERED: 0.9 % Sodium Chloride 1,000 ML IVC SCH (10:15)
[2020-09-15] MEDS: Piperacillin/Tazobactam 3.375 GM in 0.9 % Sodium Chloride Mini Bag 100 ML IVPB SCH (11:46)
[2020-09-15] MEDS ORDERED: cefTRIAXone 1,000 MG in Water for inj. (sterile) 10 ML IVP SCH (13:00)
[2020-09-15] MEDS ORDERED: Cyanocobalamin (B-12) 1,000 MCG/ML VIAL SQ ONE (14:43)
[2020-09-15] MEDS ORDERED: Acetaminophen 325 MG TABLET PO PRN (14:44)
[2020-09-15] MEDS ORDERED: Naloxone 0.4 MG/ML INJ IVP PRN (14:44)
[2020-09-15] MEDS: Ziprasidone 20 MG CAPSULE PO SCH (15:33)
[2020-09-15] MEDS: *HR* Heparin 5,000 UNIT/ML VIAL SQ SCH (21:49)
[2020-09-15] MEDS: traZODone 50 MG TABLET PO SCH (21:50)
[2020-09-15] MEDS: Sennosides/Docusate Sodium TABLET PO SCH (21:50)
[2020-09-16 06:16] LABS: BUN/Creatinine Ratio 13 (6-26); Blood Urea Nitrogen 11 mg/dL (8-23); Calcium 8.7 mg/dL (8.6-10.3); Carbon Dioxide 24 mEq/L (23-29); Chloride 106 mEq/L (98-107); Glucose 97 mg/dL (70-105); Osmolality,Calculated 281 (280-300); Sodium 136 mEq/L (136-145); eGFR For African Americans > 60 (> 60); eGFR For Non-African Americans > 60 (> 60)
[2020-09-16] MEDS: *HR* Heparin 5,000 UNIT/ML VIAL SQ SCH (06:37)
[2020-09-16 07:29] VITALS: BP 107/65
[2020-09-16 07:38] LABS: Hematocrit 32.8 % (35.3-44.9); Hemoglobin 10.5 g/dL (11.5-15.4); Mean Corpuscular Hemoglobin 30.4 pg (28.0-33.3); Mean Corpuscular Volume 95.1 fL (83.0-100.0); Mean Platelet Volume 9.7 fL (9.4-12.4); Platelet Count 242 K/mcL (140-400); Red Blood Count 3.45 M/mcL (3.82-4.97); Red Cell Distribution Width 13.5 % (11.5-14.5); White Blood Count 5.7 K/mcL (4.3-11.1)
[2020-09-16] MEDS ORDERED: Ascorbic Acid 500 MG TABLET PO SCH (09:00)
[2020-09-16] MEDS ORDERED: Cholecalciferol (D-3) 1,000 UNIT (25MCG) TABLET PO SCH (09:00)
[2020-09-16] MEDS: Gabapentin 400 MG CAPSULE PO SCH (09:52)
[2020-09-16] MEDS: Sennosides/Docusate Sodium TABLET PO SCH (09:52)
[2020-09-16] MEDS: Aspirin Enteric Coated 81 MG Tablet PO SCH (09:52)
[2020-09-16] MEDS: lamoTRIgine 100 MG TABLET PO SCH (09:53)
[2020-09-16] MEDS: Nicotine 21 MG PATCH.TD24 TD SCH (09:54)
[2020-09-16] MEDS ORDERED: cefTRIAXone 1,000 MG in Water for inj. (sterile) 10 ML IVP SCH (13:00)
== END 2020-09-16 12:21 | disposition home or self-care (01) | DRG 92 ==
LOC: EMEROOARM 19:05 → 3NENU 19:05 → CDU 09-15 12:43 → 3BNU 09-15 16:18
PROVIDERS: ADMIT Internal Medicine; ATTEND Internal Medicine